=== PATIENT | male | born 1995 | race African-American/Black ===

== ENCOUNTER 2022-07-25 11:36 | Emergency (ER) | payer OTHER, SELFPAY ==
--- NOTE | ~2022-07-25 | XR_ITS ---
EXAMINATION: XR KNEE, RIGHT CLINICAL INFORMATION: Pain after injury COMPARISON: None available. TECHNIQUE: Four views of the right knee. FINDINGS: The joint spaces are normal. No fracture or joint effusion. A few old small ossicles are present along the undersurface of the distal patellar tendon. These could be a manifestation of [place]-Schlatter disease during childhood. Soft tissues are swollen at the proximal patellar tendon. There appears to be mild superior patellar subluxation on the crosstable lateral view. XR/XR knee RT 4V IMPRESSION: There is mild superior patellar subluxation on the crosstable lateral view and soft tissues are swollen in the infrapatellar area. Correlate for any pain in the infrapatellar region. If there is decreased knee extension, then consider MR imaging follow-up to evaluate integrity of the patellar tendon.
[2022-07-25 11:55] VITALS: BP 122/66; PULSE 74; RESP 16; TEMP 36.9; O2SAT 97; BMI 23.7
--- NOTE | 2022-07-25 12:04 | PC.NURSE ---
pt a&ox4, vss, reporting right knee pain post sharp movement during flag football game, difficult weight bearing and bending knee. reports audible pop with 10/10 pain. pt pending XR and ED provider.
--- NOTE | 2022-07-25 12:11 | ED.LOWEXIN ---
HPI - Extremity Injury (Lower) General Chief Complaint: Extremity Injury, Lower Stated Complaint: R knee inj 07/25 Time Seen by Provider: 07/25/22 11:55 Source: patient Mode of arrival: wheelchair Limitations: no limitations History of Present Illness HPI Narrative: 26 yo male presents to the ER for evaluation of a right knee injury sustained today while playing football. he states he was running, making cuts to avoid other players when his right foot got stuck in the ground and he heard a pop. He is unsure if he twisted the knee, denies hyper extending it. He reports after hearing a pop he has been having difficulty walking, bending the leg. He reports the knee is swollen and has significant pain with any attempt at moving it. He has minimal pain at rest. No other injuries. No numbness or tingling. MD complaint: knee injury Onset (ago): hour(s) Injury: Right: knee Type of Injury: unknown Place: street/outdoors Severity: moderate Severity scale (1-10): 6 Relieving factors: immobilization and rest Exacerbating factors: weight bearing, movement and palpation Context: running Associated symptoms: snap/pop sensation, swelling and unable to bear weight Other symptoms: none Related Data Previous Rx's Medication Instructions Recorded hydrocodone 5 mg-acetaminophen 325 1 tab PO Q8H PRN severe pain 07/25/22 mg tablet (scale score 7-10) #8 tabs ibuprofen 600 mg tablet 600 mg PO Q8H PRN pain #14 tabs 07/25/22 Allergies Allergy/AdvReac Type Severity Reaction Status Date / Time No Known Allergies Allergy Verified 07/25/22 11:55 Review of Systems Review of Systems: Yes all other systems are reviewed and are negative [facility] Social History Social History Advance Directives: No Physical Exam Vital Signs: Vital Signs: Last Vital Signs Temp 98.5 F 07/25/22 11:55 Pulse 74 07/25/22 11:55 Resp 16 07/25/22 11:55 BP 122/66 07/25/22 11:55 Pulse Ox 97 07/25/22 11:55 O2 Del Method Room Air 07/25/22 11:55 BMI result Body Mass Index 23.7 Appearance: Alert. Oriented X3. No acute distress. HEENT: normal inspection CVS: Normal heart rate and rhythm. Pulses normal. Respiratory: No respiratory distress. Skin: Skin warm and dry. Normal skin color. Normal skin turgor. No rashes. Extremities: right knee has moderate generalized swelling. The patellar is high-riding with a palpable defect inferiorly. The area is tender. Unable to bend past 10 degrees passively or actively. no tenderness of the medial or lateral joint line. Neuro: Oriented X 3. Grossly normal, nonfocal Unable to test gait due to pain Medications Administered Discontinued Medications Generic Name Dose Route Start Last Admin Trade Name Pooja PRN Reason Stop Dose Admin Hydrocodone Bitart/Acetaminophen 1 tab 07/25/22 12:27 07/25/22 12:33 Hydrocodone Bit/Acetam 5/325 Tablet PO 07/25/22 12:28 1 tab ONCE ONE Administration Ibuprofen 600 mg 07/25/22 12:27 07/25/22 12:33 Ibuprofen 600 Mg Tablet PO 07/25/22 12:28 600 mg ONCE ONE Administration Medical Decision Making Medical Decision Making MDM Narrative: 26-year-old male presents to the ER for evaluation of right knee pain and swelling, limited range of motion in unable to bear weight after he had a non contact injury while playing football today. Initial concern was for ACL tear however given his examination and x-ray findings today, it is more consistent with patellar tendon injury. Palpable defect on exam. Will place in knee immobilizer for comfort, refer to orthopedics. Case was discussed with Mariam Miller from Orthopedics. The office will call him on Wednesday. Results and plan were discussed with the patient. He will be discharged with pain control. He understands the plan. Stable for discharge Differential Diagnosis Differential Diagnoses: The differential diagnosis associated with the presentation includes ACL tear, patellar tendon tear, patellar dislocation, knee sprain Consult Healthcare Provider Management of the patient was discussed with: Rope Coiling Machine Operator Angela JAVIER from Orthopedics Independent Interpretation I performed an independent interpretation of an: Plain X-Ray Interpretation: superior patellar subluxation noted on exam agrees radiologist read Radiology Impression Discussion of test interpretation with radiology: I have reviewed the radiologist's reading. Radiologist Impression: XR/XR knee RT 4V IMPRESSION: There is mild superior patellar subluxation on the crosstable lateral view and soft tissues are swollen in the infrapatellar area. Correlate for any pain in the infrapatellar region. If there is decreased knee extension, then consider MR imaging follow-up to evaluate integrity of the patellar tendon. Independent Historian Clinical information obtained from an independent historian. History obtained from or confirmed by: Parent Prescription Management I considered prescription management with: Pain Medication Critical Care Time Critical Care Time Critical Care Time: No Discharge Plan Discharge Clinical Impression: Tendon rupture, traumatic, patella Patient Disposition: Home, Self-Care Instructions: Patella Tendon Repair (DC), Knee Pain (ED) Additional Instructions: Your exam and imaging today were concerning for patellar tendon injury. where the provided knee immobilizer as needed for pain. Follow-up with orthopedics. They will call you on Wednesday. Ice your knee several times per day and elevate as able. Use crutches. Take the prescribed anti-inflammatory medication as needed for pain and swelling as well as the prescribed narcotic pain medication as needed for severe pain only. XR/XR knee RT 4V IMPRESSION: There is mild superior patellar subluxation on the crosstable lateral view and soft tissues are swollen in the infrapatellar area. Correlate for any pain in the infrapatellar region. If there is decreased knee extension, then consider MR imaging follow-up to evaluate integrity of the patellar tendon. Prescriptions: New ibuprofen 600 mg tablet 600 mg PO Q8H PRN (Reason: pain) Qty: 14 0RF hydrocodone-acetaminophen 5-325 mg tablet 1 tab PO Q8H PRN (Reason: severe pain (scale score 7-10)) Qty: 8 0RF Rx Instructions: Partial Fill upon patient request. Referrals: [facility] [Provider Group] (Exam concerning for patellar tendon tear)
[2022-07-25] MEDS: HYDROcodone Bit/Acetam 5/325 TABLET 1 TAB PO (12:33)
[2022-07-25] MEDS: Ibuprofen 600 MG TABLET PO (12:33)
--- NOTE | 2022-07-25 12:34 | PC.NURSE ---
pt medicated per APR for 10 rt knee pain.
--- NOTE | 2022-07-25 14:16 | PC.NURSE ---
pt verbalizes improvement in pain with medication and immobilization, plan for pt to follow up w ortho on Wednesday. knee immobilizer on right knee, crutches training provided by other nurse.
== END 2022-07-25 14:20 | disposition home or self-care (01) ==
PROVIDERS: Emergency Provider Emergency Medicine; PCP Internal Medicine
DX: S86.811A Strain of other muscle(s) and tendon(s) at lower leg level, right leg, initial encounter (principal); X50.1XXA Overexertion from prolonged static or awkward postures, initial encounter; Y93.61 Activity, american tackle football; Y92.321 Football field as the place of occurrence of the external cause; Y99.9 Unspecified external cause status
CPT/HCPCS: 73564; 99283

== ENCOUNTER 2022-08-07 07:33 | Outpatient (REF) | payer OTHER, SELFPAY | END 2022-08-07 07:34 | disposition home or self-care (01) | LOC: HO.HOSX 07:33 | PROVIDERS: Visit Provider Physician Assistant | DX: S86.811A Strain of other muscle(s) and tendon(s) at lower leg level, right leg, initial encounter (principal) | CPT/HCPCS: 99202 ==

== ENCOUNTER 2022-08-10 12:05 | Outpatient (REF) | payer OTHER, SELFPAY ==
--- NOTE | ~2022-08-10 | MR_ITS ---
EXAMINATION: MR KNEE WITHOUT CONTRAST, RIGHT CLINICAL INFORMATION: Knee pain, status post injury. Preoperative planning. COMPARISON: None available. TECHNIQUE: MRI of the knee without contrast was performed using routine sequences on a high-field scanner. FINDINGS: MENISCI: Medial Meniscus: Intact Lateral Meniscus: Tibial surface tear in the anterior horn. LIGAMENTS: Cruciate: Intact. Collateral: MCL is intact. There is edema associated with the iliotibial band, both superficial and deep to it, which may be reactive to the adjacent tear versus iliotibial band sprain. EXTENSOR MECHANISM: There is marked abnormal signal, ill-definition, irregularity and discontinuity of the proximal patellar tendon, involving a segment approximately 1.9 cm craniocaudal. There may be some possible amorphous ill-defined fibers remaining. Findings have the appearance of high-grade/full-thickness tearing. There is edema in the lateral patellofemoral ligament, and the lateral patellar retinaculum. There is ill-definition and irregularity of the lateral patellar retinaculum, involving a segment approximately 4.2 cm AP, compatible with partial tearing which is more prominent inferiorly. ARTICULAR CARTILAGE/BONE: Patellofemoral Compartment: No focal cartilage loss. Abnormality of the lateral patellofemoral ligament/retinaculum, as detailed above. Edema, likely sprain of the MPFL/medial patellar retinaculum. Medial Compartment: No focal cartilage loss. Lateral Compartment: No focal cartilage loss. JOINT FLUID AND BURSAE: Moderate effusion. No significant Alvares's cyst. There is prominent subcutaneous edema anteriorly with subcutaneous edema to lesser degree posteriorly. MR/MR knee RT wo con IMPRESSION: 1. Abnormal findings in the proximal patellar tendon involving a segment approximately 1.9 cm craniocaudal, having the appearance of a high-grade/full-thickness tear. 2. Strain and partial tearing of the lateral patellofemoral ligament and retinaculum, findings more prominent inferiorly. This involves a length of approximately 4.2 cm AP. 3. Findings suggest sprain of the MPFL/medial patellar retinaculum. 4. Tear of the anterior horn lateral meniscus. 5. Findings suggest iliotibial band sprain. 6 . Moderate effusion. 7. Prominent subcutaneous tenderness edema. 8. Additional findings and details as above.
== END 2022-08-10 12:06 | disposition home or self-care (01) ==
LOC: HO.MRI 12:05
PROVIDERS: PCP Internal Medicine; Visit Provider Orthopaedic Surgery
DX: S86.811A Strain of other muscle(s) and tendon(s) at lower leg level, right leg, initial encounter (principal)
CPT/HCPCS: 73721

== ENCOUNTER 2022-08-11 11:50 | Day surgery (SDC) | payer OTHER, SELFPAY ==
--- NOTE | 2022-08-10 09:03 | HO.ANESPROP2 ---
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 Allergies Allergy/AdvReac Type Severity Reaction Status Date / Time No Known Allergies Allergy Verified 08/07/22 10:37 Exam Exam Date and Time: August 10, 2022902 Assessment and Plan Assessment Anesthesia Assessment: Chart Reviewed Documented by User: Miquel Desai MD 08/11/22 17:10 [facility] Past Medical History Medical History Hx of sinus bradycardia Family History Family history of problems with anesthesia: No Surgical History History of Problems with Anesthesia: No Social History Social History (Updated 08/11/22 @ 17:10 by Miquel Desai MD) Patient Tobacco Use Status: Never used Tobacco Substance Use Type: Marijuana Current occupational status: 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 Allergies Allergy/AdvReac Type Severity Reaction Status Date / Time No Known Allergies Allergy Verified 08/07/22 10:37 Exam Airway Mallampati Class: I TM Dist: >3cm Neck ROM: Full Loose/Missing/Broken Teeth: No Assessment and Plan Assessment Anesthesia Assessment: Anesthesia Plan Discussed Final Anesthetic Review Family History of Problems with Anesthesia: No History of Problems with Anesthesia: No NPO: Yes ASA Class: I Final Preanesthetic Review: No Changes in Pt Med Stat, Meds/Allgs Chart Reviewed, Consent Obtained/Reviewed and Anes Risks/Benef Reviewed Patient Risk: Low Procedure Risk: Low Anesthetic Plan Anesthetic Plan: GA Disposition: Standard PACU
[2022-08-11] VITALS (8 sets, daily range): BP systolic 124–168; BP diastolic 77–104; PULSE 59–84; RESP 12–22; TEMP 36.8–36.9; O2SAT 97–100; BMI 25.5
[2022-08-11] MEDS: Lactated Ringers 1,000 ML 100 ML IVCONT (12:33)
--- NOTE | 2022-08-11 13:52 | PC.NURSE ---
PT REFUSED TO HAVE BRACE OFF
--- NOTE | 2022-08-11 16:00 | PM.OP ---
Brief Operative Note Date of Service: 08/11/22 Pre-op diagnosis: right patellar tendon rupture Post-op diagnosis: same Procedure: Repair right patellar tendon Implants: Matthews and Nephew anchor x 2 Surgeon: Julien Colby MD Anesthesia: GETA and local Was an Certified Medicine Aide used for this Procedure?: Yes Certified Medicine Aide: Gary Purcell Estimated blood loss (mL): 25 Tourniquet time (min): 90 IV fluids (mL): 1,000 Pathology: none sent Condition: stable Disposition: PACU
[2022-08-11] MEDS: HYDROmorphone HCl 0.5 MG/0.5 ML SYRINGE IVPUSH ×2 (16:15→16:20)
[2022-08-11] MEDS: Acetaminophen 1,000 MG/100 ML PIGGYBACK 400 MG IV (16:18)
[2022-08-11] MEDS: oxyCODONE HCl Immed Release 5 MG TABLET PO (16:33)
--- NOTE | 2022-08-20 19:46 | W.PM.OPN ---
Operative Note Operative Note Date of Service: 08/11/22 Narrative: Date of Service: 08/11/22 Pre-op diagnosis: right patellar tendon rupture Post-op diagnosis: same Procedure: Repair right patellar tendon Implants: Matthews and Nephew anchor x 1 Surgeon: Julien Colby MD Anesthesia: GETA and local Was an Small Engine Technician used for this Procedure?: Yes Small Engine Technician: Gary Purcell Estimated blood loss (mL): 25 Tourniquet time (min): 90 IV fluids (mL): 1,000 Pathology: none sent Condition: stable Disposition: PACU Procedure in detail: Patient was brought to the operating room and placed supine on the surgical table. He was prepped and draped in standard sterile fashion and a time out was called to identify proper site, proper procedure and IV antibiotics per weight were administered. I began by making a midline incision over the patella tendon. The patella and tendon were identified. There was a complete avulsion of the patellar tendon. I debrided necrotic tissue from the tendon and debrided the distal patella with a rongeur. I then placed one 4.75 Matthews and Nephew Helacoil into the central portion of the patella. 2 seperate 1.6 mm k wires were drilled through the patella from distal to proximal. I then whip stitched 2 #2 fiberwires through the medial and lateral edges of the patellar tendon in standard locking fashion. The ends were then brought through the k-wire holes. I irrigated copiously and then , with the knee in hyper-extension, tied the fiber wires to each other over the proximal patella. The anchor sutures had previously been ship stitched through the central portion of the tendon. There were then tied. I then used an additional fiber wire to oversew the construct. I then bent the knee to 120 deg without change in repair. I was satisfied with the repair. The wound was then irrigated and closed with absorbable suture and joni. He was placed into sterile dressings and a hinged knee brace locked in extension. He was extubated and brought the the recovery room in stable condition. There were no known complications.
== END 2022-08-11 17:52 | disposition home or self-care (01) ==
PROVIDERS: PCP Internal Medicine; Visit Provider Orthopaedic Surgery
PROC: (CPT 27380; principal; 2022-08-11 14:00)
DX: S86.811A Strain of other muscle(s) and tendon(s) at lower leg level, right leg, initial encounter (principal); M25.561 Pain in right knee; X58.XXXA Exposure to other specified factors, initial encounter; Y93.62 Activity, american flag or touch football; Y92.9 Unspecified place or not applicable; Y99.8 Other external cause status
CPT/HCPCS: 27380; C1713; J0131; J0690; J1100; J1170; J2405; J2550; J2795

== ENCOUNTER 2022-08-17 13:18 | Outpatient (REF) | payer OTHER, SELFPAY ==
--- NOTE | ~2022-08-17 | XR_ITS ---
EXAMINATION: XR KNEE, RIGHT CLINICAL INFORMATION: Pain COMPARISON: 07/25/2022 x-ray. 08/10/2022 MR knee. TECHNIQUE: Single standing crosstable lateral view of the right knee. FINDINGS: Surgical joni present anteriorly. Oblique positioning limits evaluation. Joint effusion with soft tissue swelling. Redemonstration of small ossicle along the distal patellar tendon, possibly representing [place]-Schlatter disease. Redemonstration of mild superior patellar subluxation. XR/XR knee RT 1V IMPRESSION: Redemonstration of mild superior patellar subluxation with associated findings as detailed above.
== END 2022-08-17 13:19 | disposition home or self-care (01) ==
LOC: HO.HOSX 13:18
PROVIDERS: PCP Internal Medicine; Visit Provider Physician Assistant
DX: S86.811D Strain of other muscle(s) and tendon(s) at lower leg level, right leg, subsequent encounter (principal)
CPT/HCPCS: 73560

== ENCOUNTER → 2022-08-24 15:41 | Outpatient (BNVA) | payer OTHER, SELFPAY | PROVIDERS: PCP Internal Medicine; Visit Provider Physician Assistant ==

== ENCOUNTER 2022-09-24 14:57 | Outpatient (AMB) | payer OTHER, SELFPAY ==
[2022-09-24 15:08] VITALS: BMI 23.1
--- NOTE | 2022-09-24 15:08 | MHC.OFFVIS ---
Intake Vital Signs 09/24/22 15:08 Height 6 ft 1 in Weight 175 lb BMI 23.1 Intake Visit Reasons: PO - Right Patella Tendon Repair 08/11/22 Intake Note: Blayne a 26 year old male who presents today for a post operative of right patella tendon repair, 08/11/22. Patient reports he is dong well and only while working with PT on stretching. He has no concerns today. Allergies No Known Allergies Allergy (Verified 09/24/22 15:13) HPI PO - Right Patella Tendon Repair 08/11/22 HPI Details 26-year-old male who returns to the office today for post-op right patella tendon repair, 08/11/22. He states he has pain with working on physical therapy for stretching but is doing well otherwise. He has no other concerns today. 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 He is able to flex the knee to about 80-90 degrees. He has full extension to 0. He does have some difficulty with activation of quad muscles due to atrophy. Calf supple, nontender. NVI. Assessment & Plan Assessment & Plan (1) Traumatic rupture of right patellar tendon: Comment: Right patellar tendon repair 08/11/2022 NE Code(s): S86.811A - Strain of other muscle(s) and tendon(s) at lower leg level, right leg, initial encounter Plan Dr. Colby was available to see the patient with me today. We did express the importance of getting the quad muscle activated and improve function of the quad. He will continue to work on motion but to use caution to not be too aggressive. He can increase 10 degrees every week. He will continue wearing the brace while ambulating. He can unlock to 30 degrees while walking. He will see us back in 6 weeks for a routine follow-up, sooner if needed. Orders: Orders PT Evaluation and Treatment 09/24/22 S86.811A - Strain of other muscle(s) and tendon(s) at lower leg level, right leg, initial encounter Patient Instructions: Scribed for Gary Purcell PA-C, by Miles Aponte medical lab technologist, on 09/24/2022 at 3:30 PM EST. IGary PA-C, have personally reviewed and agree with the information entered by the scribe. Coding Level of Care Code Global (69000) Diagnoses Traumatic rupture of right patellar tendon S86.811A
== END 2022-09-24 15:40 | disposition home or self-care (01) ==
PROVIDERS: PCP Internal Medicine; Visit Provider Physician Assistant
DX: S86.811A Strain of other muscle(s) and tendon(s) at lower leg level, right leg, initial encounter (principal)
CPT/HCPCS: 99024

== ENCOUNTER → 2022-09-24 14:57 | Outpatient (BNVA) | payer OTHER, SELFPAY | PROVIDERS: PCP Internal Medicine; Visit Provider Physician Assistant ==

== ENCOUNTER 2022-11-02 14:57 | Outpatient (AMB) | payer OTHER, SELFPAY ==
--- NOTE | 2022-11-02 15:04 | MHC.OFFVIS ---
Intake Vital Signs 11/02/22 15:06 Height 6 ft 1 in Weight 175 lb BMI 23.1 Intake Visit Reasons: PO - Right Patella Tendon Repair 08/11/22 Intake Note: Blayne a 26 year old male who presents today for a post operative of right patella tendon repair, 08/11/22. Patient reports doing well, no pain or discomfort. He states here a clicking sound when bending his knee. 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
[2022-11-02 15:06] VITALS: BMI 23.1
== END 2022-11-02 15:45 ==
PROVIDERS: PCP Internal Medicine; Visit Provider Orthopaedic Surgery
DX: S86.811A Strain of other muscle(s) and tendon(s) at lower leg level, right leg, initial encounter (principal)
CPT/HCPCS: 99024

== ENCOUNTER → 2022-11-02 14:57 | Outpatient (BNVA) | payer OTHER, SELFPAY | PROVIDERS: PCP Internal Medicine; Visit Provider Orthopaedic Surgery ==

== ENCOUNTER 2022-12-02 12:07 | Outpatient (REF) | payer OTHER, SELFPAY ==
[2022-12-02 14:27] LABS: CT PCR NOT DETECTED (Not Detect.); NG PCR NOT DETECTED (Not Detect.)
[2022-12-03 04:24] LABS: HBS Num1 0.51 mIU/mL (0-7.99); HBc Num1 0.07 S/CO (0.00-0.79); HBsAGNum1 0.39 S/CO (0.00-0.99); HIV AB/AG Nonreactive (Nonreactive); HIV Num 1 0.06 S/CO (0.00-0.99); Hepatitis A Antibody IgM 0.17 Index (0-0.79); Hepatitis B Core Antibody Nonreactive (Nonreactive); Hepatitis B Surface Antigen Negative (Negative); ~Hepatitis A Antibody IgM Nonreactive (Nonreactive); ~Hepatitis B Surface Antibody NONREACTIVE (Nonreactive); ~Hepatitis C Antibody Nonreactive (Nonreactive)
[2022-12-03 21:53] LABS: Herpes Simplex Type 1 IgG <0.90 index; Herpes Simplex Type 2 IgG <0.90 index
== END 2022-12-02 12:08 | disposition home or self-care (01) ==
LOC: HO.LAB 12:07
PROVIDERS: PCP Internal Medicine; Visit Provider Internal Medicine
DX: Z20.2 Contact with and (suspected) exposure to infections with a predominantly sexual mode of transmission (principal)
CPT/HCPCS: 0353U; 86695; 86696; 86704; 86706; 86709; 86803; 87340; 87389

== ENCOUNTER 2022-12-03 13:33 | Outpatient (AMB) | payer OTHER, SELFPAY ==
--- NOTE | 2022-12-03 13:34 | A.OFFVIS_ITS ---
Intake Vital Signs 12/03/22 13:35 Height 6 ft 1 in Weight 175 lb BMI 23.1 Intake Visit Reasons: OV-Right Patella Tendon Repair 08/11/22 Intake Note: Blayne is a 26 year old male who presents today for a post operative of right patella tendon repair, 08/11/22. Patient reports that he is doing well, he has had intermittent episodes of swelling. HE is working with PT, he has 7 sessions left. He is still out of work, will need work note. Allergies No Known Allergies Allergy (Verified 11/02/22 15:04) HPI OV-Right Patella Tendon Repair 08/11/22 HPI Details Blayne is a 26 year old man who presents ~4 months S/P right patellar tendon repair. He says he is doing well overall, with intermittent episodes of swelling which tend to occur with activity. He says this swelling is not painful. He has been attending PT and has a few sessions left. He continues to wear his knee brace with activity, which he finds helpful He has been out of work since his surgery and wants to discuss his work status. 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 Review of Systems Const All systems reviewed & are unremarkable except as noted in HPI and below Physical Exam Vital Signs: BMI result Body Mass Index 23.1 Const General: no acute distress, alert and awake Orientation/consciousness: patient oriented x3 HEENT Head: Yes normocephalic and Yes atraumatic Eyes EOM: EOMs intact bilaterally Resp Effort & Inspection: normal respiratory effort and able to speak in complete sentences Cardio Jugular venous distension: no JVD Skin General skin exam: turgor normal Rashes: no rashes Neuro General: patient oriented x3 Extrem Other: Right Knee: 5-120 degrees ROM Well-healed incision poor quad control Psych Appearance: grossly normal Affect: normal affect Attitude: cooperative Assessment & Plan Assessment & Plan (1) Traumatic rupture of right patellar tendon: Comment: Right patellar tendon repair 08/11/2022 NE Code(s): S86.811A - Strain of other muscle(s) and tendon(s) at lower leg level, right leg, initial encounter Plan: This is a 26 year old man S/P right patellar tendon repair, DOS: 08/11/22. He is doing well overall, with intermittent episodes of swelling, and has been attend ing PT. I recommend he continue with PT and strengthening exercises, including the use of a stationary bicycle and leg press. He is to avoid any running or jumping exercises for the next 3 months at least, and will begin to wean off his knee brace at this time. He was given a note for work with restricitons. He is not ready to interact with kids that may require restraint. He will follow up in 8 weeks. Plan Scribed for Julien Colby MD by Louis Sylvester, medical certification specialist, on 12/03/22 at 1:50 PM, EST. Coding Level of Care Code Est Pt Level 4 (57685) Diagnoses Traumatic rupture of right patellar tendon S86.811A
[2022-12-03 13:35] VITALS: BMI 23.1
== END 2022-12-03 14:01 | disposition home or self-care (01) ==
PROVIDERS: PCP Internal Medicine; Visit Provider Orthopaedic Surgery
DX: S86.811A Strain of other muscle(s) and tendon(s) at lower leg level, right leg, initial encounter (principal)
CPT/HCPCS: 99213

== ENCOUNTER → 2022-12-03 13:33 | Outpatient (BNVA) | payer OTHER, SELFPAY | PROVIDERS: PCP Internal Medicine; Visit Provider Orthopaedic Surgery | DX: S86.811D Strain of other muscle(s) and tendon(s) at lower leg level, right leg, subsequent encounter (principal) | CPT/HCPCS: 99212 ==

== ENCOUNTER 2023-02-04 10:14 | Outpatient (AMB) | payer OTHER, SELFPAY ==
[2023-02-04 10:41] VITALS: BMI 23.1
--- NOTE | 2023-02-04 10:41 | A.OFFVIS_ITS ---
Intake Vital Signs 02/04/23 10:41 Height 6 ft 1 in Weight 175 lb BMI 23.1 Intake Visit Reasons: OV-Right Patella Tendon Repair 08/11/22 Intake Note: Blayne is a 26 year old male who presents today for a post operative of right patella tendon repair, 08/11/22. Patient reports that the leg is feeling better, he continues to have swelling. His swelling is consistent, he is icing but he does not notice relief from swelling with this. Allergies No Known Allergies Allergy (Verified 11/02/22 15:04) HPI OV-Right Patella Tendon Repair 08/11/22 HPI Details Blayne is a 27 year old man who presents ~6 months S/P right patellar tendon repair. He says he is doing well overall, though he continues to have swelling in his knee. He says this swelling is not painful but also does not improve when icing his knee. He has completed his course of PT and continues to work on strengthening exercises at home. 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 Review of Systems Const All systems reviewed & are unremarkable except as noted in HPI and below Physical Exam Vital Signs: BMI result Body Mass Index 23.1 Const General: no acute distress, alert and awake Orientation/consciousness: patient oriented x3 HEENT Head: Yes normocephalic and Yes atraumatic Eyes EOM: EOMs intact bilaterally Resp Effort & Inspection: normal respiratory effort and able to speak in complete sentences Cardio Jugular venous distension: no JVD Skin General skin exam: turgor normal Rashes: no rashes Neuro General: patient oriented x3 Extrem Other: Well healed incision 0-130 compared to 0-135 on left no pain with resisted knee extension Psych Appearance: grossly normal Affect: normal affect Attitude: cooperative Assessment & Plan Assessment & Plan (1) Traumatic rupture of right patellar tendon: Comment: Right patellar tendon repair 08/11/2022 NE Code(s): S86.811A - Strain of other muscle(s) and tendon(s) at lower leg level, right leg, initial encounter Plan: 6 mo post op doing well strengthening of VMO May return to work Plan Scribed for Julien Colby MD by Louis Sylvester, medical coding instructor, on 02/04/23 at 10:50 AM, EST. Coding Level of Care Code Est Pt Level 3 (13587) Diagnoses Traumatic rupture of right patellar tendon S86.811A
== END 2023-02-04 10:58 | disposition home or self-care (01) ==
PROVIDERS: PCP Internal Medicine; Visit Provider Orthopaedic Surgery
DX: S86.811D Strain of other muscle(s) and tendon(s) at lower leg level, right leg, subsequent encounter (principal)
CPT/HCPCS: 99213

== ENCOUNTER → 2023-02-04 10:14 | Outpatient (BNVA) | payer OTHER, SELFPAY | PROVIDERS: PCP Internal Medicine; Visit Provider Orthopaedic Surgery | DX: S86.811D Strain of other muscle(s) and tendon(s) at lower leg level, right leg, subsequent encounter (principal) | CPT/HCPCS: 99212 ==

== ENCOUNTER 2023-02-18 16:00 | Outpatient (RCR) | payer OTHER, SELFPAY ==
--- NOTE | 2022-08-19 17:34 | MHC.PT.EP ---
[facility] [place] [facility] [place] [facility] [place] Office [address] Dee Dee Alanis [address] [phone] F: [phone] F: [phone] F: [phone] F: [phone] Physical Therapy Plan of Care Date of Evaluation: Date of Surgery: 08/11/2022 Diagnosis: s/p RIGHT patellar tendon repair (DOS: 08/11/2022) Assessment: Patient is a pleasant, active 26 y.o. male who is referred to PT by Dr. Julien Colby MD, with Dx of s/p RIGHT patellar tendon repair. Patient impairments include pain, swelling, limited ROM, weakness, impaired gait and mobility. Patient current functional limitations are difficulty with gait, stair use, WBing/standing, bending/squatting. Patient will benefit from skilled PT to address aforementioned impairments and functional limitations to meet established goals. Frequency and Duration: The patient will be seen 2-3x/week for 12 weeks Short Term Goals: 6 weeks Patient is able to elicit strong quad contraction to perform SLR without quad lag. Patient presents with increased knee flexion to 105 degrees per protocol to improve mobility. Half-Way Goals: 12 weeks Patient presents with increased knee flexion to 125 degrees to be able to perform sit to stand low chair. Patient presents with increased quad strength 4/5 to perform reciprocal stairs 1 flight for home. Treatment Plan: Modalities to reduce pain, spasms and effusion. Manual therapy to restore motion and function. Therapeutic exercise to improve strength and flexibility. Neuromuscular re-education for posture and balance. Therapeutic activities to return to functional activities of daily living. Electronically signed by: Percy Nixon, PT, DPT Please sign and return to therapist. Thank you for your referral.
--- NOTE | 2023-03-08 10:37 | MHC.PT.DC ---
[facility] [place] [facility] [place] [facility] [place] [facility] [address] Dee Dee Alanis [address] [phone] F: [phone] F: [phone] F: [phone] F: [phone] Physical Therapy Discharge Report Diagnosis: s/p RIGHT patellar tendon repair (DOS: 08/11/2022)9 Date of Surgery: 08/11/2022 Date of Evaluation: 08/19/22 Date of Discharge: 02/18/23 Treatments to Date: 49 Cancellations to Date: 0 No Shows to Date: 0 Discharge Status: Achieved Goals Improved Function Independent with HEP Discharge Summary: Per last PT note for discharge on 02/18/23: -AROM 0-135* -STRENGTH 5/5 KNEE FLEX/EXT and 5/5 hip abd/add/flex Pt has met all goals and is now joining a gym for strengthening and will progress running program in the future when cleared by MD Electronically signed by: Percy Nixon, PT, DPT Please sign and return to therapist. Thank you for your referral.
== END 2023-03-08 10:37 | disposition home or self-care (01) ==
LOC: HO.PT 16:00
PROVIDERS: PCP Internal Medicine; Visit Provider Orthopaedic Surgery
DX: S86.811D Strain of other muscle(s) and tendon(s) at lower leg level, right leg, subsequent encounter (principal)
CPT/HCPCS: 97110; 97112; 97116; 97140; 97161; 97530; 97535

== ENCOUNTER 2023-08-05 14:51 | Outpatient (AMB) | payer OTHER, SELFPAY ==
--- NOTE | 2023-08-05 14:52 | MHC.OFFVIS ---
Intake Visit Reasons: OV-Right Patella Tendon Repair 08/11/22 Intake Note: Blayne is a 26 year old male who presents today for a post operative of right patella tendon repair, 08/11/22. Patient reports that he is doing well has some increase pain with jumping & squatting. Some mild increased swelling Allergies No Known Allergies Allergy (Verified 08/05/23 14:53) HPI HPI OV-Right Patella Tendon Repair 08/11/22: Details: 12 months s/p right patellar tendon repair. He has full ROM and has returned to almost all activities except football. He has been playing basketball and does feel some mild swelling the day following intense activity. 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 May continue to engage in activity as tolerated. f/u as needed. Coding Level of Care Code Est Pt Level 3 (05638) Diagnoses Traumatic rupture of right patellar tendon S86.811A
== END 2023-08-05 16:15 | disposition home or self-care (01) ==
PROVIDERS: PCP Internal Medicine; Visit Provider Orthopaedic Surgery
DX: S86.811A Strain of other muscle(s) and tendon(s) at lower leg level, right leg, initial encounter (principal)
CPT/HCPCS: 99212

== ENCOUNTER → 2023-08-05 14:51 | Outpatient (BNVA) | payer OTHER, SELFPAY | PROVIDERS: PCP Internal Medicine; Visit Provider Orthopaedic Surgery | DX: S86.811D Strain of other muscle(s) and tendon(s) at lower leg level, right leg, subsequent encounter (principal) | CPT/HCPCS: 99212 ==

== ENCOUNTER 2023-08-17 10:13 | Outpatient (AMB) | payer OTHER, SELFPAY ==
[2023-08-17 10:16] VITALS: BP 120/74; PULSE 58; TEMP 36.7; O2SAT 98; BMI 24.7
--- NOTE | 2023-08-17 10:16 | MHC.OFFWIV ---
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 He has results on phone of HIV, HCV, RPR (syphilis), CT/NG all negative. He was then seen again by PCP about 5 days ago for same complaint, lack of resolution of inguinal swelling, and was told, per patient not to worry about it. Pt PCP Dr. Vail, no records available. Presenting today for same: continued swelling of inguinal region. Lesion on penis is resolving. Sexual partner, female, of approx. 1 year. Has had no other partners for at least several months. Partner recently treated for strep. Pt denies any fevers, myalgias, body aches, penile discharge, dysuria, recent heavy lifting or strain. He denies any recent travel, rash, tick bites but reports [place]. 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 Review of Systems Const Reports as per HPI, Denies fatigue, Denies fever(s), Denies headache(s), Denies lethargy and Denies malaise Eyes Denies loss of vision ENT Denies headache(s) Skin/Breast Reports lesions and Denies rash Neuro Denies burning sensations, Denies headache(s) and Denies loss of vision Endo Denies fatigue Almas/Lymph Reports lymphadenopathy Physical Exam Vital Signs: Last Vital Signs Temp 98.0 F 08/17/23 10:16 Pulse 58 08/17/23 10:16 BP 120/74 08/17/23 10:16 Pulse Ox 98 08/17/23 10:16 BMI result Body Mass Index 24.7 Const General: no acute distress Nutritional Appearance: average body habitus Neck Neck: Yes full ROM and Yes no lymphadenopathy Resp Effort & Inspection: normal respiratory effort Male General Exam: Yes inguinal lymphadenopathy (more significant on right, non-tender) bilateral and Yes Genital lesions present (healing lesion of approx 0.5mm on ventral shaft of penis) Penis: Genital lesions present (healing lesion of approx 0.5mm on ventral shaft of penis) Meatus: meatus normal Scrotum: scrotum normal and testes descended bilaterally Results AMB Urinalysis, Automated UA Leukoctes 0 Elvie/uL Last Edit by Lukasz Scott CCM on 08/17/23 10:57 UA Nitrite Negative Last Edit by Lukasz Scott [facility] on 08/17/23 10:57 UA Urobilinogen 0.2 mg/dL Last Edit by Lukasz Scott [facility] on 08/17/23 10:57 UA Protein 15 mg/dL Last Edit by Lukasz Scott [facility] on 08/17/23 10:57 UA pH 7.0 Last Edit by Lukasz Scott [facility] on 08/17/23 10:57 UA Blood 0 Richy/uL Last Edit by Lukasz Scott [facility] on 08/17/23 10:57 UA Specific [place] 1.015 Last Edit by Lukasz Scott CCM on 08/17/23 10:57 UA Ketone Negative Last Edit by Lukasz Scott [facility] on 08/17/23 10:57 UA Bilirubin 0 mg/dL Last Edit by Lukasz Scott [facility] on 08/17/23 10:57 UA Glucose 0 mg/dL Last Edit by Lukasz Scott [facility] on 08/17/23 10:57 Results Reviewed Results Reviewed: Laboratory Last Values Urine pH (Auto) 7.0 08/17/23 10:56 Specific [place] (Auto) 1.015 08/17/23 10:56 Urine Protein (Auto) 15 mg/dL 08/17/23 10:56 Glucose (UA)(Auto) 0 mg/dL 08/17/23 10:56 Urine Ketones (Auto) Negative 08/17/23 10:56 Urine Blood (Auto) 0 Richy/uL 08/17/23 10:56 Urine Nitrite (Auto) Negative 08/17/23 10:56 Urine Bilirubin (Auto) 0 mg/dL 08/17/23 10:56 Urine Urobilinogen (Auto) 0.2 mg/dL 08/17/23 10:56 Leukocyte Esterase (Auto) 0 Elvie/uL 08/17/23 10:56 Assessment & Plan Assessment & Plan (1) Genital lesion, male: Code(s): N50.89 - Other specified disorders of the male genital organs Plan: Pt with small lesion on penis and LAD; RPR at initial presentation negative but this can remain negative through initial onset of syphilis. DDx does also include Lyme. Pt engaged in shared decision making, I have obtained an HSV swab, UA today unremarkable. I will treat for syphilis with 2 weeks of doxycycline which would also cover for Lyme. Pt educated in R/B/C of doxycycline, encouraged to f/u with PCP for RPR/syphilis titer and Lyme IGG testing once treatment is completed. (2) Inguinal lymphadenopathy: Code(s): R59.0 - Localized enlarged lymph nodes Plan: see above Orders: Orders AMB Urinalysis Automated Today Z13.9 - Encounter for screening, unspecified Herpes Virus Culture Today N50.89 - Other specified disorders of the male genital organs Medications: New doxycycline hyclate 100 mg PO BID 14 days 28 caps 0RF Coding Level of Care Code New Pt Level 3 (89829) Diagnoses Genital lesion, male N50.89 Inguinal lymphadenopathy R59.0
== END 2023-08-17 11:35 | disposition home or self-care (01) ==
PROVIDERS: PCP Internal Medicine; Visit Provider Emergency Medicine
DX: N50.89 Other specified disorders of the male genital organs (principal); R59.0 Localized enlarged lymph nodes
CPT/HCPCS: 81003; 99203

== ENCOUNTER 2023-08-17 11:12 | Outpatient (REF) | payer OTHER, SELFPAY | END 2023-08-17 11:13 | disposition home or self-care (01) | LOC: HO.LAB 11:12 | PROVIDERS: Visit Provider Emergency Medicine | DX: N50.89 Other specified disorders of the male genital organs (principal) | CPT/HCPCS: 87255 ==

== ENCOUNTER 2023-12-13 15:22 | Outpatient (AMB) | payer OTHER, SELFPAY ==
--- NOTE | 2023-12-13 15:25 | AM.OFFWIN_ITS ---
Intake Vital Signs 12/13/23 15:26 Height 6 ft 1 in Weight 176 lb BMI 23.2 BP 126/72 Blood Pressure Location Rt brachial Position Sitting Pulse 78 Pulse Source Pulse Oximeter Pulse Oximetry (%) 98 Oxygen Delivery Method Room Air Intake Visit Reasons: EP swelling in groin area Intake Note: Patient here for swelling in groin area which has been present for a few days. He states this has happened in the past. Patient Tobacco Use Status: Never used Tobacco Allergies No Known Allergies Allergy (Verified 12/13/23 15:28) Do you need a note to return to daycare/school/sports/work: Yes HPI EP swelling in groin area HPI Details This note is constructed using voice recognition software. While every effort has been made to ensure accuracy, pressroom worker errors may have been included. The patient is a 27 year old male who presents to the clinic today with complaints of swelling in the groin area bilaterally. He notes that over the summer he had a similar event, was seen by his primary care followed by urgent care as the symptoms did not seem to resolve. At that time he also had lesions on his penis, that were swabbed or HSV which were negative. He had STD workup, which was all negative. He was treated with doxycycline in the event that he may have syphilis, or Lyme disease, which turned out to both be negative on testing back with his primary care provider. He reports since that time, the swelling in his groin became last, however he admits that he does not know if it completely went away. Several days ago, he had a similar recurrence of swelling. He has what he calls a scratch to the penis, without any discharge. There is no pain, though the swelling area is tender per patient. He has no pain as discharge. He is sexually active, however with the same partner for greater than 1 year. He denies fever, chills, body aches. He denies change in function of his bladder or bowel. 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 Review of Systems Const All systems reviewed & are unremarkable except as noted in HPI and below Physical Exam Vital Signs: Last Vital Signs Pulse 78 12/13/23 15:26 BP 126/72 12/13/23 15:26 Pulse Ox 98 12/13/23 15:26 Oxygen Delivery Method Room Air 12/13/23 15:26 BMI result Body Mass Index 23.2 Const General: cooperative, healthy appearing, comfortable, no acute distress and well developed Orientation/consciousness: patient oriented x3 Limitations: no limitations Resp Effort & Inspection: normal respiratory effort and able to speak in complete sentences Cardio Rate: regular rate Rhythm: regular rhythm Heart sounds: normal S1 and S2 GI Inspection: Yes normal to inspection Palpation (GI): Soft to palpation and nontender Other: Pipeline Controller offered for exam, declined by patient. Male General Exam: No ecchymosis, No edema, No erythema and Yes inguinal lymphadenopathy (2 cm, nonmobile, nontender, firm) bilateral Penis: circumcised and other (Linear abrasion present) Scrotum: scrotum normal (Normal cremasteric reflex), no masses and no scrotal swelling Testes: Testes normal Neuro General: patient oriented x3 Extrem General: Yes normal to inspection Assessment & Plan Assessment & Plan (1) Inguinal lymphadenopathy: Code(s): R59.0 - Localized enlarged lymph nodes Plan: Previous walk-in note reviewed. Previous lab results reviewed. Discussed consideration of repeat labs to test for STI, however based on the fact that there have been no change in circumstances, it is unlikely that we will have any difference in testing. Etiology unclear with ongoing and return of symptoms for the past several months. Advised patient to follow up with his primary care provider, due to size, lack of mobility, lack of tenderness, and firm nature of the lymphadenopathy. He likely will require an ultrasound for further evaluation. Given his slight improvement previously, we did elect to prescribed doxycycline again as this may help treat infection. (2) Genital lesion, male: Code(s): N50.89 - Other specified disorders of the male genital organs Plan: Previously negative for HSV, now with what appears to be abrasions. Advised keeping the area clean and dry. Advised monitoring for signs of secondary bacterial infection, which are not present at this time. Advised follow up with PCP for inguinal lymphadenopathy. Plan See above for full details and plan. Medications: Refilled doxycycline hyclate 100 mg PO BID 14 days 28 caps 0RF Coding Level of Care Code Est Pt Level 4 (14167) Diagnoses Inguinal lymphadenopathy R59.0 Genital lesion, male N50.89
[2023-12-13 15:26] VITALS: BP 126/72; PULSE 78; O2SAT 98; BMI 23.2
== END 2023-12-13 16:08 | disposition home or self-care (01) ==
PROVIDERS: PCP Internal Medicine; Visit Provider Registered Nurse
DX: R59.0 Localized enlarged lymph nodes (principal); N50.89 Other specified disorders of the male genital organs

== ENCOUNTER → 2023-12-13 15:22 | Outpatient (BNVA) | payer OTHER, SELFPAY | PROVIDERS: PCP Internal Medicine; Visit Provider Registered Nurse | DX: R59.0 Localized enlarged lymph nodes (principal); N50.89 Other specified disorders of the male genital organs | CPT/HCPCS: 99212 ==

== ENCOUNTER 2024-01-18 14:37 | Outpatient (REF) | payer OTHER, SELFPAY ==
[2024-01-18 16:22] LABS: MANUAL DIFF FLAG NO
[2024-01-18 16:38] LABS: Eosinophils Absolute Auto 0.2 X10*3/uL (0.0-0.4); Eosinophils Percent Auto 5.5 % (0-4); Hematocrit 44.3 % (42.0-52.0); Hemoglobin 15.2 g/dl (14.0-18.0); Imm Gran Abs Auto 0.01 X10*3/uL (0.00-0.03); Imm Gran Pct Auto 0.3 % (0.0-0.4); Lymphocytes Absolute Auto 1.8 X10*3/uL (1.2-4.9); Lymphocytes Percent Auto 44.5 % (20-40); Mean Corpuscular HGB Conc 34.3 g/dl (31.0-36.0); Mean Corpuscular Volume 87.5 fL (80.0-98.0); Mean Platelet Volume 11.8 fL (9.4-12.4); Monocytes Absolute Auto 0.3 X10*3/uL (0.1-1.2); Monocytes Percent Auto 6.8 % (2-11); Neutrophils Absolute Auto 1.7 x10*3/uL (2.0-8.3); Neutrophils Percent Auto 41.9 % (45-73); Platelet Count 198 X10*3/uL (160-400); Red Blood Count 5.06 X10*6/uL (4.60-5.80); Red Cell Distribution Width 13.2 % (11.0-16.0)
[2024-01-19 03:31] LABS: CT PCR NOT DETECTED (Not Detect.); NG PCR NOT DETECTED (Not Detect.)
[2024-01-19 08:35] LABS: Syphilis Screen Nonreactive (Nonreactive)
[2024-01-20 06:23] LABS: Lyme Abs Screen <0.90 index
== END 2024-01-18 14:38 | disposition home or self-care (01) ==
LOC: HO.HMGCLDS 14:37
PROVIDERS: PCP Internal Medicine; Visit Provider Internal Medicine
DX: R53.83 Other fatigue (principal); Z20.2 Contact with and (suspected) exposure to infections with a predominantly sexual mode of transmission
CPT/HCPCS: 36415; 85025; 86617; 86618; 86780; 87491; 87591

== ENCOUNTER 2024-01-27 15:33 | Outpatient (REF) | payer OTHER, SELFPAY | END 2024-01-27 15:34 | disposition home or self-care (01) | LOC: HO.HMGCX 15:33 | PROVIDERS: PCP Internal Medicine; Visit Provider Internal Medicine | DX: R19.09 Other intra-abdominal and pelvic swelling, mass and lump (principal) | CPT/HCPCS: 76857 ==

== ENCOUNTER → 2024-01-27 15:34 | Outpatient (BNV) | payer OTHER, SELFPAY | PROVIDERS: PCP Internal Medicine; Visit Provider Radiology Diagnostic Radiology | DX: R19.09 Other intra-abdominal and pelvic swelling, mass and lump (principal) | CPT/HCPCS: 76857 ==

== ENCOUNTER 2024-06-09 15:02 | Outpatient (AMB) | payer OTHER, SELFPAY ==
--- OUTSIDE RECORDS SUMMARY | 2024-06-09 15:09 | XMS_ITS | Clinical Summary ---
Author Organization [facility] Address [address] [place] [address] Care Team Providers Care Shower Screen Installer Name Role Phone Unavailable Primary Care Provider Unavailabl e Social History Tobacco Use Types Packs/Day Years Used Date Smoking Tobacco: Never Assessed Sex and Gender Information Value Date Recorded Sex Assigned at Not on file Legal Sex Male 5:59 PM EST Gender Identity Not on file Sexual Orientation Not on file Plan of Treatment Health Maintenance Due Date Last Done Comments DTaP,Tdap,and Td Vaccines (1 - Tdap) 12/28/2015 Hepatitis B Vaccines (1 of 3 - 19+ 3-dose series) 12/28/2015 COVID-19 Vaccine ( - 2023-2 5 season) 2023 Influenza Vaccine (Season Ended) 2024 HIB Vaccines Aged Out No longer eligi ble based on patient's age to complete this topic HPV Vaccines Aged Out No longer eligi ble based on patient's age to complete this topic Hepatitis A Vaccines Aged Out No long er eligible based on patient's age to complete this topic IPV Vaccines Aged Out No longer eligi ble based on patient's age to complete this topic MMR Vaccines Aged Out No longer eligi ble based on patient's age to complete this topic Meningococcal ACWY Vaccine Aged Out N o longer eligible based on patient's age to complete this topic Meningococcal B Vaccine Aged Out No l onger eligible based on patient's age to complete this topic Pneumococcal Vaccine: Pediat rics (0 to 5 Years) and At-Risk Patients (6 to 64 Years) Aged Out No longer eligible b ased on patient's age to complete this topic RSV Immunization Patients Un isi 20 months Aged Out No longer eligible b ased on patient's age to complete this topic Varicella Vaccines Aged Out No longer eligible based on patient's age to complete this topic
--- NOTE | 2024-06-09 15:30 | MHC.OFFVIS ---
Intake Visit Reasons: Groin lymph node inflammation Intake Note: New patient presents today for initial visit for groin lymph node inflammation Urology Medication:none Blood Thinner:none Antibiotic Allergies:none Allergies No Known Allergies Allergy (Verified 07/06/24 11:11) HPI Comments Details: 06/09/24--The patient is a 28-year-old male presenting with swelling in the groin area. Earlier in 2023, he experienced episodes of swelling in the inguinal region, which temporarily resolved but later reappeared. He consulted his primary care doctor and underwent STD testing, which returned negative. An urgent care visit in January included an ultrasound that revealed lymphadenopathy. The recent decrease in swelling has been noted, with no accompanying pain or other urinary complaints. The patient has expressed concern over the possible causes of the lymphadenopathy. Results - January ultrasound showing inguinal lymphadenopathy - Negative sexually transmitted disease tests Discussion Notes During the consultation, we discussed the patient's current state of inguinal lymphadenopathy. I recommended a CAT scan to reevaluate the lymph nodes for any changes, discussed possible need for a biopsy, should the lymph nodes remain prominent, emphasizing the potential for an inflammatory type response from the body initially. He denies familial cancer history. [facility] Medical History (Updated 07/06/24 @ 18:20 by Essence Vega PA-C) Penile lump Hx of sinus bradycardia Family History Father No problems noted. Mother No problems noted. 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 Cognitive needs: No Hearing needs: No Vision needs: Yes (rx contacts) Review of Systems Const All systems reviewed & are unremarkable except as noted in HPI and below Reports no additional complaints Eyes Reports no additional complaints ENT Reports no additional complaints Card Reports no additional complaints Resp Reports no additional complaints GI Reports no additional complaints Reports as per HPI Musc Reports no additional complaints Skin/Breast Reports system reviewed and no additional complaints, except as documented Neuro Reports no additional complaints Psych Reports no additional complaints Endo Reports no additional complaints Almas/Lymph Reports no additional complaints Aller/Immun Reports no additional complaints Physical Exam Const General: healthy appearing, no acute distress and well developed Orientation/consciousness: patient oriented x3 HEENT Head: Yes normocephalic and Yes atraumatic Eyes Conjunctivae: conjunctivae normal Neck Neck: Yes normal visual inspection Chest Chest palpation & inspection: normal inspection of the chest Resp Effort & Inspection: normal respiratory effort Cardio Rate: regular rate GI Inspection: Yes normal to inspection Neuro General: patient oriented x3 Psych Appearance: grossly normal Affect: normal affect Assessment & Plan Assessment & Plan (1) Pelvic lymphadenopathy: Code(s): R59.0 - Localized enlarged lymph nodes Category: Medical (2) Lymphadenopathy: Code(s): R59.1 - Generalized enlarged lymph nodes Category: Medical Plan Plan The patient's management includes obtaining a CAT scan to reassess the lymphadenopathy seen on the previous ultrasound. The CAT scan will utilize IV contrast Orders: Orders Blood Urea Nitrogen 06/14/24 R59.1 - Generalized enlarged lymph nodes, R59.0 - Localized enlarged lymph nodes CT pelvis wo/w IV con 06/09/24 R59.0 - Localized enlarged lymph nodes, R59.1 - Generalized enlarged lymph nodes Creatinine 06/14/24 R59.0 - Localized enlarged lymph nodes, R59.1 - Generalized enlarged lymph nodes Patient Instructions: The patient had an opportunity to ask questions regarding treatment plan. The patient expressed understanding and agreement with the above treatment plan. The patient is aware they should contact our office by phone for worsening of their current condition or the appearance of new symptoms. Compliance is encouraged with any medications and followup testing that is ordered. It is a privilege to be allowed the opportunity to participate in the urologic care of your patient. If you have any questions or concerns regarding treatment for the above conditions please do not hesitate to contact me. The office telephone contact is [phone]. This note is constructed in part using voice recognition software. While every effort has been made to ensure accuracy business unit controller errors may have been included. Yours sincerely, Huyen Alfaro MD Scribe Plan - Not visible on output: Patient was informed and verbally consented to the use of an ambient scribe for clinic note documentation during this visit. Coding Level of Care Code New Pt Level 3 (97758) Diagnoses Pelvic lymphadenopathy R59.0 Lymphadenopathy R59.1
== END 2024-06-09 16:02 | disposition home or self-care (01) ==
LOC: HO.HUSH 15:03
PROVIDERS: PCP Internal Medicine; Visit Provider Urology
DX: R59.0 Localized enlarged lymph nodes (principal); R59.1 Generalized enlarged lymph nodes
CPT/HCPCS: 99203

== ENCOUNTER → 2024-06-09 15:02 | Outpatient (BNVA) | payer OTHER, SELFPAY | PROVIDERS: PCP Internal Medicine; Visit Provider Urology ==

== ENCOUNTER 2024-06-14 09:36 | Outpatient (REF) | payer OTHER, SELFPAY ==
--- OUTSIDE RECORDS SUMMARY | 2024-06-14 11:26 | XMS_ITS | Clinical Summary ---
Author Organization [facility] Address [address] [place] [address] Care Team Providers Care Soil Specialist Name Role Phone Unavailable Primary Care Provider [...]
[2024-06-14 13:54] LABS: Blood Urea Nitrogen 12 mg/dL (9-16); Estimated Glomerular Filt Rate > 60
[2024-06-14 15:57] LABS: CT PCR NOT DETECTED (Not Detect.); NG PCR NOT DETECTED (Not Detect.)
[2024-06-15 04:14] LABS: HIV AB/AG Nonreactive (Nonreactive); HIV Num 1 0.08 S/CO (0.00-0.99)
[2024-06-15 10:53] LABS: Herpes Simplex Type 1 IgG <0.90 index; Herpes Simplex Type 2 IgG 2.79 index
[2024-06-15 11:39] LABS: RPR Rapid Plasma Reagin NON-REACTIVE (NON-REACTIVE)
== END 2024-06-14 09:37 | disposition home or self-care (01) ==
LOC: HO.HMGCLDS 09:36
PROVIDERS: Urology; PCP Internal Medicine; Visit Provider Physician Assistant
DX: R59.1 Generalized enlarged lymph nodes (principal); R59.0 Localized enlarged lymph nodes; Z20.2 Contact with and (suspected) exposure to infections with a predominantly sexual mode of transmission
CPT/HCPCS: 36415; 82565; 84520; 86592; 86695; 86696; 87389; 87491; 87591

== ENCOUNTER 2024-06-14 09:36 | Outpatient (AMB) | payer OTHER, SELFPAY ==
--- NOTE | 2024-06-14 09:44 | MHC.OFFWIV ---
Intake Vital Signs 06/14/24 09:46 Weight 174 lb BP 122/80 Blood Pressure Location Rt brachial Position Sitting Pulse 68 Pulse Source Pulse Oximeter Pulse Oximetry (%) 100 Oxygen Delivery Method Room Air Intake Visit Reasons: EP STI testing Intake Note: Patient here for STI check as he has a new partner. Patient Tobacco Use Status: Never used Tobacco Allergies No Known Allergies Allergy (Verified 06/14/24 09:49) Do you need a note to return to daycare/school/sports/work: No HPI HPI Comments History of Present Illness Details Patient is a 28yo M who presents for STD screening + new partner and unsure about exposure to STDs He noticed a few bumps on his shaft this week so he wanted to get checked States this has happened before and it resolved on its own; last time it occured he was STD tested and negative Denies pain to lesions, 0/10 No itching, discharge or redness Denies current testicular pain, dysuria, frequency or urgency No abdominal pain 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 Review of Systems Const Denies chills and Denies fever(s) GI Denies abdominal pain Denies difficulty urinating, Reports genital lesions, Denies genital pain, Denies dysuria, Denies penile discharge, Denies scrotal swelling, Denies testicular mass, Denies urinary frequency, Denies urinary hesitancy and Denies urinary urgency Musc Denies back pain Skin/Breast Reports new lesions, Denies erythema and Denies rash Physical Exam Vital Signs: Last Vital Signs Pulse 68 06/14/24 09:46 BP 122/80 06/14/24 09:46 Pulse Ox 100 06/14/24 09:46 Oxygen Delivery Method Room Air 06/14/24 09:46 General: Non-toxic, NAD. Speaking full sentences. Skin: Warm dry throughout Eye: EOMI Respiratory: CTA bilaterally. No wheezes, rales or rhonchi Cardiac: RRR. No murmur Abdominal: BS present x 4. No tenderness to light and deep palpation abdomen. No rebound or guarding : Pt agreed to examination. He had 4 small skin colored papules to base of shaft. No skin discoloration, lesions or jamila anoted to headof penis. No vesicular lesions MSK: Full ROM extremities. Neurology: Alert. No aphasia or facial droop. Gait without abnormality Psych: Good mood and affect Assessment & Plan Assessment & Plan (1) Possible exposure to STD: Code(s): Z20.2 - Contact with and (suspected) exposure to infections with a predominantly sexual mode of transmission Plan: Patient seen and evaluated. No concern for herpes on exam Will send urine GC and chalmydia, serum HIV HSV and syphilis labs per pt request Discussed no concern for penile papules and to monitor for change in appearance, drainage or pain and call with concerns Patient gave verbal understanding and had no additional questions or concerns at time of discharge All questions answered Orders: Orders HIV Ab/Ag Today Z20.2 - Contact with and (suspected) exposure to infections with a predominantly sexual mode of transmission Herpes Simplex Virus Ab IgG Today Z20.2 - Contact with and (suspected) exposure to infections with a predominantly sexual mode of transmission CT NG by PCR Today Z20.2 - Contact with and (suspected) exposure to infections with a predominantly sexual mode of transmission RPR Monitor reflex titer Today Z20.2 - Contact with and (suspected) exposure to infections with a predominantly sexual mode of transmission Coding Level of Care Code Est Pt Level 3 (38025) Diagnoses Possible exposure to STD Z20.2
[2024-06-14 09:46] VITALS: BP 122/80; PULSE 68; O2SAT 100
--- OUTSIDE RECORDS SUMMARY | 2024-06-14 10:48 | XMS_ITS | Clinical Summary ---
Author Organization [facility] Address [address] [place] [address] Care Team Providers Care Photoengraving Etcher Name Role Phone Unavailable Primary Care Provider [...]
== END 2024-06-14 10:22 | disposition home or self-care (01) ==
PROVIDERS: PCP Internal Medicine; Visit Provider Physician Assistant
DX: Z20.2 Contact with and (suspected) exposure to infections with a predominantly sexual mode of transmission (principal)

== ENCOUNTER 2024-06-16 14:12 | Outpatient (AMB) | payer OTHER, SELFPAY ==
[2024-06-16 14:25] VITALS: BMI 24.0
--- NOTE | 2024-06-16 14:25 | MHC.OFFWIV ---
Intake Vital Signs 06/16/24 14:25 Height 6 ft 1 in Weight 182 lb BMI 24.0 Intake Visit Reasons: EP-std testing Intake Note: Patient here for S Patient Tobacco Use Status: Never used Tobacco Allergies No Known Allergies Allergy (Verified 06/14/24 09:49) HPI HPI Comments History of Present Illness Details History of Present Illness - The patient is a 28-year-old male presenting with genital lesions potentially related to Herpes Simplex Virus. - Past medical history includes HSV 2 IgG positivity, indicating previous exposure without active infection. - Patient has experienced similar episodes of genital lesions in the past, previously tested negative for HSV IgM - The current episode began with prodromal tingling sensation in the scrotum area a day prior to recognition of lesions. - The patient is cognizant of the dormant nature of HSV and associated contagion risks with vesicles. - Declined cash management associate for exam Physical Exam General: Cooperative, healthy appearing, comfortable, no acute distress and well developed Orientation: Patient oriented x3 Limitations: No limitations Head: Normal to inspection Ears: Hearing grossly normal bilaterally Nose: Normal External nose present Face and sinus: Normal facial exam Eyes: Appearance normal, both eyes and all related structures Neck: Normal visual inspection and Yes full ROM Respiratory: Normal respiratory effort and able to speak in complete sentences. 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 His past positive HSV Type 2 IgG diagnosis was considered, and a HSV culture swab was taken to confirm infection. Antiviral medication was advised to begin promptly within the first three days from noticing lesions to expedite healing, pending positive test confirmation. He was counseled on sexual abstinence during active outbreaks, the limited protection condoms offer due to potential viral shedding, and the importance of informing partners to prevent transmission. Treatment consent was confirmed, and he was informed that test results would be communicated once available. Patient was informed and verbally consented to the use of an ambient scribe for clinic note documentation during this visit. Medications: New valacyclovir 1,000 mg PO DAILY 5 days 5 tabs 0RF Coding Level of Care Code Est Pt Level 3 (46330) Diagnoses HSV-2 (herpes simplex virus 2) infection B00.9
--- OUTSIDE RECORDS SUMMARY | 2024-06-16 14:53 | XMS_ITS | Clinical Summary ---
Author Organization [facility] Address [address] [place] [address] Care Team Providers Care Solar Pv Installer Name Role Phone Unavailable Primary Care [...]
== END 2024-06-16 14:52 | disposition home or self-care (01) ==
PROVIDERS: PCP Internal Medicine; Visit Provider Physician Assistant
DX: B00.9 Herpesviral infection, unspecified (principal)

== ENCOUNTER → 2024-06-16 14:12 | Outpatient (BNVA) | payer OTHER, SELFPAY | PROVIDERS: PCP Internal Medicine; Visit Provider Physician Assistant ==

== ENCOUNTER 2024-06-16 16:40 | Outpatient (REF) | payer OTHER, SELFPAY | END 2024-06-16 16:41 | disposition home or self-care (01) | LOC: HO.LNP 16:40 | PROVIDERS: Visit Provider Family Medicine | DX: Z20.2 Contact with and (suspected) exposure to infections with a predominantly sexual mode of transmission (principal) | CPT/HCPCS: 87255 ==

== ENCOUNTER 2024-06-17 11:22 | Outpatient (REF) | payer OTHER, SELFPAY ==
--- OUTSIDE RECORDS SUMMARY | 2024-06-17 11:25 | XMS_ITS | Clinical Summary ---
Author Organization [facility] Address [address] [place] [address] Care Team Providers Care Textile Knitter Name Role Phone Unavailable Primary Care Provider [...]
== END 2024-06-17 11:23 | disposition home or self-care (01) ==
LOC: HO.LAB 11:22
PROVIDERS: Visit Provider Family Medicine
DX: Z13.89 Encounter for screening for other disorder (principal)

== ENCOUNTER 2024-06-29 07:37 | Outpatient (REF) | payer OTHER, SELFPAY ==
--- NOTE | ~2024-06-29 | CT_ITS ---
CLINICAL HISTORY: R59.0 - Localized enlarged lymph nodes Exam: CT Abdomen and Pelvis With IV Contrast Comparison: None Findings: The liver density is homogeneous No biliary abnormalities The spleen is normal in size No pancreatic ductal dilatation No hydronephrosis. No urinary tract calculi or obstruction. Normal bowel caliber The appendix is normal. No free fluid/free air No vascular abnormalities. No retroperitoneal or mesenteric lymphadenopathy Bladder outline is smooth No suspicious skeletal lesions. Impression : Unremarkable CT of the abdomen and pelvis. Specifically no CT evidence of lymphadenopathy. This document has been electronically signed by: Jose M Cm MD on 06/29/2024 16:20:53
--- OUTSIDE RECORDS SUMMARY | 2024-06-29 07:39 | XMS_ITS | Clinical Summary ---
Author Organization [facility] Address [address] [place] [address] Care Team Providers Care Airplane Navigator Name Role Phone Unavailable Primary Care Provider [...]
[2024-06-29] MEDS: Barium Sulfate Oral (Berry) 450 ML ORAL.SUSP 900 ML PO (09:58)
[2024-06-29] MEDS: iohexoL 350 MG/ML 100 ML INFUS..BTL IV (10:00)
== END 2024-06-29 07:38 | disposition home or self-care (01) ==
LOC: HO.CT 07:37
PROVIDERS: PCP Family Medicine; Visit Provider Urology
DX: R59.0 Localized enlarged lymph nodes (principal)
CPT/HCPCS: 74177; Q9967

== ENCOUNTER → 2024-06-29 07:39 | Outpatient (BNV) | payer OTHER, SELFPAY | PROVIDERS: PCP Family Medicine; Visit Provider Radiology Diagnostic Radiology | DX: R59.0 Localized enlarged lymph nodes (principal) | CPT/HCPCS: 74177 ==

== ENCOUNTER 2024-07-03 14:40 | Outpatient (AMB) | payer OTHER, SELFPAY ==
--- NOTE | 2024-07-03 14:37 | MHC.PC.OV ---
Vital Signs 07/03/24 14:38 Height 6 ft 1 in Weight 180 lb BMI 23.7 BP 122/67 Respiration 14 Pulse 66 Pulse Source Pulse Oximeter Temp 97.7 F Temp Source Temporal Artery Scan Pulse Oximetry (%) 98 Oxygen Delivery Method Room Air Intake Visit Reasons: establish care, ? STD Forcer Maker Required: No Accompanied by: Self / Same As Patient Allergies No Known Allergies Allergy (Verified 07/06/24 11:11) Medication List - Last Reconciled 07/06/24 by Essence Vega PA-C doxycycline monohydrate 100 mg PO BID 10 days valacyclovir (Valtrex) 500 mg PO DAILY Tobacco use date assessed: 07/03/24 Dental Screening Dental Screen Date: 07/03/24 Did you have a dental visit in the last 12 months?: No Did you have a dental problem in the last 6 months where you did not have access to dental care?: No HPI establish care, ? STD HPI Details The patient is a 28-year-old male presenting to establish care following a recent HSV-2 diagnosis and concern over genital lesions/bumps. A month prior, after seeking STI testing due to concerns, he tested negative for syphilis and chlamydia but positive for HSV-2 via culture from a genital sore. His initial symptoms included tingling in the genital area, which soon developed into visible sores. He has since commenced antiviral treatment. The patient also reports persistent inguinal lymph node groin swelling since the previous year, unrelated to any known recent infections. Although primarily sexually active with one partner for three years, the patient reports prior multiple sexual contacts without consistent condom use. Current anxiety surrounds potential transmission of HSV-2 and possible the genital lumps he is experiencing, prompting further urologic evaluation, including a CT scan, and a referral for potential biopsy or surgical evaluation of warts. Social History - Family Status: Has been in a relationship with a female partner for approximately three years. - Substance Use: Denied during the conversation. - Functional Status: The patient is sexually active with the same partner for a proximally 3 years although has been having sexual intercourse unprotected with another female. [facility] Medical History (Updated 07/06/24 @ 18:20 by Essence Vega PA-C) Penile lump Hx of sinus bradycardia Family History Father No problems noted. Mother No problems noted. 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 1. Little interest or pleasure in doing things: not at all 2. Feeling down, depressed, or hopeless: not at all 3. Trouble falling or staying asleep, or sleeping too much: not at all 4. Feeling tired or having little energy: not at all 5. Poor appetite or overeating: not at all 6. Feeling bad about yourself - or that you are a failure or have let yourself or your family down: not at all 7. Trouble concentrating on things, such as reading the newspaper or watching television: not at all 8. Moving or speaking so slowly that other people could have noticed. Or the opposite - being so fidgety or restless that you have been moving around a lot more than usual: not at all 9. Thoughts that you would be better off or of hurting yourself in some way: not at all Total score: 0 Depression Screening Interpretation: Negative Depression Screening Done: Yes 60803 - PHQ-9 Billing: Yes Source: Developed by Drs. Presley Carter, Becky Escobedo, Rowdy Cantu and colleagues, with an educational dane from [employer]. Thrive Questionnaire Date Thrive assessed: 07/03/24 I am a: Patient What is your living situation today?: I have a steady place to live Within the past 12 months, did the food you bought not last and you didn't have the money to get more?: Never true Within the past 12 months, did you worry whether your food would run out before you got money to buy more?: Never true Do you have trouble paying for medicines?: No Do you have trouble getting transportation to medical appointments?: No Do you have trouble paying your heating and electricity bill?: No Do you have trouble taking care of your child, family member or friend?: No Do you have trouble with day-to-day activities such as bathing, preparing meals, shopping, managing finances, etc.?: No Are you currently unemployed and looking for a job?: No Are you interested in more education?: No Please select the resources that you would like help with: None THRIVE Score: 0 AUDIT C Alcohol Use Questionnaire (AUDIT-C) 1. How often do you have a drink containing alcohol?: Monthly or less 2. How many drinks containing alcohol do you have on a typical day when you are drinking?: 1 or 2 3. How often do you have six or more drinks on one occasion?: Never Total Score: 1 Score Reviewed/Action Taken: No SAVITA-7 AMB Questionnaire SAVITA-7 Date SAVITA - 7 assessed: 07/03/24 Feeling nervous, anxious, or on edge: 0 = Not at all Not being able to stop or control worryin = Not at all Worrying too much about different things: 0 = Not at all Trouble relaxin = Not at all Being so restless that it is hard to sit still: 0 = Not at all Becoming easily annoyed or irritable: 0 = Not at all Feeling afraid as if something awful might happen: 0 = Not at all Total SAVITA-7 score (0-4 normal; 5-9 mild; 10-14 moderate; 15-21 severe): 0 Source: Developed by Drs. Presley Carter, Becky Escobedo, Rowdy Cantu and colleagues, with an educational dane from [employer]. SAVITA-7 Assessment Billing SAVITA-7 Assessment Tool: SAIVTA-7 Assessment 17539 Review of Systems Const Details: - Genitourinary: Reports tingling, swelling in the groin, and lesions in the genital area. - Integumentary: Reports genital lumps. - Neurological: Denies other symptoms. - General: Reports anxiety and stress about the diagnosis. Physical exam (Primary Care) Vital Signs: Last Vital Signs Temp 97.7 F 07/03/24 14:38 Pulse 66 07/03/24 14:38 Resp 14 07/03/24 14:38 BP 122/67 07/03/24 14:38 Pulse Ox 98 07/03/24 14:38 Oxygen Delivery Method Room Air 07/03/24 14:38 Care Plan Goal for BP management: <130/90 at Goal BMI result Body Mass Index 23.7 normal bmi Tobacco/Smoking Status: Tobacco use Status Tobacco use date assessed 07/03/24 07/03/24 14:39 Patient Tobacco Use Status Never used Tobacco 07/03/24 14:45 PHQ-9: PHQ-9 Score PHQ-9: Total score 0 07/06/24 11:17 Depression Screening Interpretation: Negative Thrive Assessment: Date of Thrive Assessment Date Thrive assessed 07/03/24 07/03/24 14:39 Const Other: Appearance: Alert. Oriented X3. No acute distress. Head: Normal external exam. Normocephalic. Atraumatic. Eyes: Pupils are equal, round, and reactive to light. Extraocular movements intact. Conjunctiva and sclera normal. Eyelids normal. Ears: External auditory canal normal. Tympanic membranes normal. Throat: Pharynx normal. Uvula midline. Moist mucous membranes. Neck: Normal inspection. Neck supple. Full range of motion. No adenopathy. Thyroid Normal. No meningeal signs. No neck mass noted. Cardiovascular: Normal heart rate and rhythm. Heart sound normal. No murmurs noted. Pulses normal throughout. Respiratory: No respiratory distress. Painless inspiration. Breath sounds normal. No wheezes/rales/rhonchi noted. Chest nontender. No accessory muscle usage noted or decreased air movement noted. Abdomen: Soft and nontender. Bowel sounds normal in all 4 quadrants. No distention noted. No organomegaly noted. No visible injury noted. : Silk Blocker present. To the shaft of the penis patient has nontender macular papular lumps. No purulent drainage, induration, fluctuance, foul odor or signs of active infection at this time. No penile discharge noted. No inguinal lymphadenopathy noted at this time. Back: No costovertebral angle tenderness. Full range of motion noted. Skin: Skin warm and dry. Normal skin color. Normal skin turgor. No rashes/lesions/lacerations noted. Extremities: No lower extremity edema. Extremities exhibit normal range of motion. Extremities nontender. Neuro: Oriented X 3. No motor deficit. No sensory deficit. Reflexes normal. Results Reviewed Results Reviewed: - Labs: HSV culture positive for HSV-2; syphilis and chlamydia tests negative. - Tests and Diagnostics: CT scan of groin, was within normal limits no acute abnormalities were noted and follow-up evaluation with Urology pending. Coding Level of Care Code Est Pt Level 4 (92470) Complex EM visit Add On G2211 Diagnoses Pelvic lymphadenopathy R59.0 HSV-2 (herpes simplex virus 2) infection B00.9 Penile lump N48.89 Additional Codes SAVITA-7 Assessment Billing - SAVITA-7 Assessment Tool: SAVITA-7 Assessment 12505 ([id number]) PHQ-9 - 36456 - PHQ-9 Billing: Yes ([id number]) Time Spent (min) 60 Assessment & Plan Assessment & Plan (1) Pelvic lymphadenopathy: Code(s): R59.0 - Localized enlarged lymph nodes Category: Medical Plan: Patient had an outpatient CT scan which was negative for any acute processes. Patient has follow-up with Urology. Patient currently symptoms improving after antivirals. Condition is improved and stable will continue to monitor. (2) HSV-2 (herpes simplex virus 2) infection: Code(s): B00.9 - Herpesviral infection, unspecified Category: Medical Plan: The patient presents with HSV-2, diagnosed via culture from genital lesions. Initiation of daily antiviral therapy with valacyclovir at 500 mg is advised, increasing to 1,000 mg during outbreaks. This approach aims to reduce recurrence and transmission risk. The patient is guided on stress management to minimize HSV-2 flare-ups. The importance of addressing both symptomatic and asymptomatic viral shedding was highlighted. Condition is chronic and stable will continue to monitor. (3) Penile lump: Code(s): N48.89 - Other specified disorders of penis Category: Medical Plan: Evaluation by a urologist is necessary for lesions consistent with genital warts. Potential treatment options like biopsy, cryotherapy, or surgical removal will be explored. This follows from initial and ongoing assessments and addresses the likelihood of a secondary infection. Plan Plan Patient was informed and verbally consented to the use of an ambient scribe for clinic note documentation during this visit. 1. Genital Herpes Hsv-2 The patient presents with HSV-2, diagnosed via culture from genital lesions. Initiation of daily antiviral therapy with valacyclovir at 500 mg is advised, increasing to 1,000 mg during outbreaks. This approach aims to reduce recurrence and transmission risk. The patient is guided on stress management to minimize HSV-2 flare-ups. The importance of addressing both symptomatic and asymptomatic viral shedding was highlighted. 2. Genital lumps possible warts Evaluation by a urologist is necessary for lesions consistent with genital warts. Potential treatment options like biopsy, cryotherapy, or surgical removal will be explored. This follows from initial and ongoing assessments and addresses the likelihood of a secondary infection. 3. Enlarged Lymph Nodes Patient had an outpatient CT scan which was negative for any acute processes. Patient has follow-up with Urology. Patient currently symptoms improving after antivirals. Condition is improved and stable will continue to monitor. I discussed with the patient the diagnosis of genital herpes (HSV-2) and recommended a management plan consisting of a daily antiseptical antiviral medication, valacyclovir, to manage and reduce the risk of outbreaks. I explained the significance and implications of HSV-2, in particular, the risks associated with viral shedding even when lesions are absent. The benefits of stress management in reducing symptom frequency were conveyed. We also covered potential transmission risks to his partner, encouraging honest communication and preventive measures, including considering protective barriers. The possibility of genital warts warrants a urological consult. The variety of interventions, such as cryotherapy or surgical excision in confirmed cases, was reviewed to assure appropriate management. The patient is encouraged to attend follow-ups, particularly to review CT findings with the urologist. Routine follow-ups in a month post-urology review are suggested to evaluate treatment efficacy and patient comfort with the management regimen. The patient was advised on recognizing signs warranting urgent care regarding increased lesion prevalence or other systemic symptoms. Orders: Orders Magnesium 07/03/24. - Encounter for general adult medical examination without abnormal findings Vitamin B12 and Folate 07/03/24 - Encounter for general adult medical examination without abnormal findings Vitamin D 25-OH Total 07/03/24 - Encounter for general adult medical examination without abnormal findings TSH reflex Free T4 07/03/24 - Encounter for general adult medical examination without abnormal findings PSA,Total (Free>4and<10) 07/03/24 - Encounter for general adult medical examination without abnormal findings Hemoglobin A1c 07/03/24. - Encounter for general adult medical examination without abnormal findings Complete Blood Count Auto Diff 07/03/24 - Encounter for general adult medical examination without abnormal findings Comprehensive [place]. Panel Fast 07/03/24 - Encounter for general adult medical examination without abnormal findings Liver Panel 07/03/24 Z00.00 - Encounter for general adult medical examination without abnormal findings Lipid Panel 07/03/24 Z00.00 - Encounter for general adult medical examination without abnormal findings Medications: New valacyclovir (Valtrex) 500 mg PO DAILY 90 tabs 3RF doxycycline monohydrate 100 mg PO BID 20 tabs 0RF 10 days Patient Instructions: - Begin taking valacyclovir 500 mg once daily. If a herpes outbreak occurs, increase to 1,000 mg per day. - Schedule a urology follow-up appointment as soon as possible to evaluate the genital warts. - Monitor for changes in the size of lymph nodes or new symptoms and contact me if symptoms worsen. - Use protection during sexual activity to reduce the risk of spreading the infection. - Practice stress management techniques, such as meditation or exercise, to help control herpes outbreaks. - Return for a follow-up appointment in a month or sooner if new symptoms develop. - Make sure to fast before the upcoming blood tests. - Call me with any questions or concerns regarding medications or symptoms.
[2024-07-03 14:38] VITALS: BP 122/67; PULSE 66; RESP 14; TEMP 36.5; O2SAT 98; BMI 23.7
--- OUTSIDE RECORDS SUMMARY | 2024-07-03 14:44 | XMS_ITS | Clinical Summary ---
Author Organization [facility] Address [address] [place] [address] Care Team Providers Care Animal Physiology Teacher Name Role Phone Unavailable Primary Care Provider [...]
== END 2024-07-03 15:35 | disposition home or self-care (01) ==
LOC: HO.HMCSH 14:40
PROVIDERS: PCP Family Medicine; Visit Provider Physician Assistant Medical
DX: R59.0 Localized enlarged lymph nodes (principal); B00.9 Herpesviral infection, unspecified; N48.89 Other specified disorders of penis

== ENCOUNTER → 2024-07-03 14:40 | Outpatient (BNVA) | payer OTHER, SELFPAY | PROVIDERS: PCP Family Medicine; Visit Provider Physician Assistant Medical | DX: R59.0 Localized enlarged lymph nodes (principal); B00.9 Herpesviral infection, unspecified; N48.89 Other specified disorders of penis | CPT/HCPCS: 96127 ==

== ENCOUNTER 2024-08-07 09:43 | Outpatient (AMB) | payer OTHER, SELFPAY ==
--- NOTE | 2024-08-07 09:56 | MHC.OFFVIS ---
Intake Visit Reasons: 10w/CT/labs Intake Note: Patient is present for 10w/CT/LABS Urology Medication:NONE Antibiotic Allergy:NONE Blood Thinner:None Allergies Seasonal Allergies Allergy (Mild, Verified 09/12/24 14:02) Sneezing HPI Comments Details: 08/07/24-- History of Present Illness - The patient is a 28-year-old male presenting with swelling in the abdominal area and concerns about possible genital warts. - Previous abdominal swelling has improved but not fully resolved, with a CT scan showing no abnormalities. - Ingrown hair, folliculitis in the genital area were noted, also evaluated by a primary care physician. - No lesions suggestive of genital warts Results - CT scan of the abdomen and pelvis: No abnormalities, no lymphadenopathy detected Plan - Reassure the patient regarding the normal CT scan results and absence of lymphadenopathy. - Educate the patient on the nature of ingrown hairs and folliculitis, confirming they are not genital warts. - No further follow-up required unless new symptoms develop. 06/09/24--The patient is a 28-year-old male presenting with swelling in the groin area. Earlier in 2023, he experienced episodes of swelling in the inguinal region, which temporarily resolved but later reappeared. He consulted his primary care doctor and underwent STD testing, which returned negative. An urgent care visit in January included an ultrasound that revealed lymphadenopathy. The recent decrease in swelling has been noted, with no accompanying pain or other urinary complaints. The patient has expressed concern over the possible causes of the lymphadenopathy. Results - January ultrasound showing inguinal lymphadenopathy - Negative sexually transmitted disease tests Discussion Notes During the consultation, we discussed the patient's current state of inguinal lymphadenopathy. I recommended a CAT scan to reevaluate the lymph nodes for any changes, discussed possible need for a biopsy, should the lymph nodes remain prominent, emphasizing the potential for an inflammatory type response from the body initially. He denies familial cancer history. [facility] Medical History Hypothyroidism Hyperlipidemia LDL goal <100 Leukopenia Vitamin D deficiency Hyperlipidemia Low TSH level Folliculitis Ingrown hair Tinea Onychomycosis Penile lump Hx of sinus bradycardia Family History Father No problems noted. Mother No problems noted. 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 Cognitive needs: No Hearing needs: No Vision needs: Yes (rx contacts) Review of Systems Const All systems reviewed & are unremarkable except as noted in HPI and below Reports no additional complaints Eyes Reports no additional complaints ENT Reports no additional complaints Card Reports no additional complaints Resp Reports no additional complaints GI Reports no additional complaints Reports as per HPI Musc Reports no additional complaints Skin/Breast Reports system reviewed and no additional complaints, except as documented Neuro Reports no additional complaints Psych Reports no additional complaints Endo Reports no additional complaints Almas/Lymph Reports no additional complaints Aller/Immun Reports no additional complaints Assessment & Plan Assessment & Plan (1) Pelvic lymphadenopathy: Comment: resolved Code(s): R59.0 - Localized enlarged lymph nodes Category: Medical Plan FU prn Patient Instructions: The patient had an opportunity to ask questions regarding treatment plan. The patient expressed understanding and agreement with the above treatment plan. The patient is aware they should contact our office by phone for worsening of their current condition or the appearance of new symptoms. Compliance is encouraged with any medications and followup testing that is ordered. It is a privilege to be allowed the opportunity to participate in the urologic care of your patient. If you have any questions or concerns regarding treatment for the above conditions please do not hesitate to contact me. The office telephone contact is [phone]. This note is constructed in part using voice recognition software. While every effort has been made to ensure accuracy tester semiconductor packages errors may have been included. Yours sincerely, Huyen Alfaro MD Scribe Plan - Not visible on output: Patient was informed and verbally consented to the use of an ambient scribe for clinic note documentation during this visit. Coding Level of Care Code Est Pt Level 3 (78838) Diagnoses Pelvic lymphadenopathy R59.0
--- OUTSIDE RECORDS SUMMARY | 2024-08-07 10:38 | XMS_ITS | Clinical Summary ---
Author Organization [facility] Address [address] [place] [address] Care Team Providers Care Boxcar Weigher Name Role Phone Unavailable Primary Care Provider [...]
== END 2024-08-07 10:14 | disposition home or self-care (01) ==
LOC: HO.HUSH 09:43
PROVIDERS: PCP Internal Medicine; Visit Provider Urology
DX: R59.0 Localized enlarged lymph nodes (principal)
CPT/HCPCS: 99213

== ENCOUNTER 2024-08-14 14:46 | Outpatient (AMB) | payer OTHER, SELFPAY ==
--- NOTE | 2024-08-14 14:45 | A.OFFPC_ITS ---
Vital Signs 08/14/24 14:46 Height 6 ft 1 in Weight 181 lb BMI 23.9 BP 113/54 L Respiration 16 Pulse 62 Pulse Source Pulse Oximeter Temp 97.8 F Temp Source Temporal Artery Scan Pulse Oximetry (%) 99 Oxygen Delivery Method Room Air Intake Visit Reasons: 1 month follow up Haunted History Tour Guide Required: No Accompanied by: Self / Same As Patient Allergies No Known Allergies Allergy (Verified 08/14/24 15:00) Medication List - Last Reconciled 08/14/24 by Essence Vega PA-C valacyclovir (Valtrex) 500 mg PO DAILY Tobacco use date assessed: 08/14/24 Dental Screening Dental Screen Date: 07/03/24 HPI 1 month follow up HPI Details The patient is a 28-year-old male presenting with concerns about ingrown hair and folliculitis in the pubic area, onychomycosis, and herpes simplex virus infection. The patient reports persistent ingrown hair and folliculitis in the pubic area, initially evaluated by myself. The patient followed up with a urologist. Patient had a CT scan of the abdomen and pelvis was performed, which showed no abnormalities, and the condition does not require further intervention unless new symptoms arise. The patient has a history of onychomycosis, which is primarily affecting the toenails. The patient has been advised to use topical and oral antifungal medications, with a referral to podiatry for further management. 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 The patient is currently taking Valtrex as needed and has not experienced any recent outbreaks. [facility] Medical History (Updated 08/14/24 @ 15:21 by Essence Vega PA-C) Folliculitis Ingrown hair Tinea Onychomycosis Penile lump Hx of sinus bradycardia Family History Father No problems noted. Mother No problems noted. 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 1. Little interest or pleasure in doing things: not at all 2. Feeling down, depressed, or hopeless: not at all 3. Trouble falling or staying asleep, or sleeping too much: not at all 4. Feeling tired or having little energy: not at all 5. Poor appetite or overeating: not at all 6. Feeling bad about yourself - or that you are a failure or have let yourself or your family down: not at all 7. Trouble concentrating on things, such as reading the newspaper or watching television: not at all 8. Moving or speaking so slowly that other people could have noticed. Or the opposite - being so fidgety or restless that you have been moving around a lot more than usual: not at all 9. Thoughts that you would be better off or of hurting yourself in some way: not at all Total score: 0 Depression Screening Interpretation: Negative Depression Screening Done: Yes 94238 - PHQ-9 Billing: Yes Source: Developed by Drs. Presley Carter, Becky Escobedo, Rowdy Cantu and colleagues, with an educational dane from [employer]. Thrive Questionnaire Date Thrive assessed: 07/03/24 I am a: Patient What is your living situation today?: I have a steady place to live Within the past 12 months, did the food you bought not last and you didn't have the money to get more?: Never true Within the past 12 months, did you worry whether your food would run out before you got money to buy more?: Never true Do you have trouble paying for medicines?: No Do you have trouble getting transportation to medical appointments?: No Do you have trouble paying your heating and electricity bill?: No Do you have trouble taking care of your child, family member or friend?: No Do you have trouble with day-to-day activities such as bathing, preparing meals, shopping, managing finances, etc.?: No Are you currently unemployed and looking for a job?: No Are you interested in more education?: No Please select the resources that you would like help with: None THRIVE Score: 0 AUDIT C Alcohol Use Questionnaire (AUDIT-C) 1. How often do you have a drink containing alcohol?: Monthly or less 2. How many drinks containing alcohol do you have on a typical day when you are drinking?: 1 or 2 3. How often do you have six or more drinks on one occasion?: Never Total Score: 1 Score Reviewed/Action Taken: No SAVITA-7 AMB Questionnaire SAVITA-7 Date SAVITA - 7 assessed: 07/03/24 Feeling nervous, anxious, or on edge: 0 = Not at all Not being able to stop or control worryin = Not at all Worrying too much about different things: 0 = Not at all Trouble relaxin = Not at all Being so restless that it is hard to sit still: 0 = Not at all Becoming easily annoyed or irritable: 0 = Not at all Feeling afraid as if something awful might happen: 0 = Not at all Total SAVITA-7 score (0-4 normal; 5-9 mild; 10-14 moderate; 15-21 severe): 0 Source: Developed by Drs. Presley Carter, Becky Escobedo, Rowdy Cantu and colleagues, with an educational dane from [employer]. SAVITA-7 Assessment Billing SAVITA-7 Assessment Tool: SAVITA-7 Assessment 25893 Review of Systems Const Details: - Dermatological: Reports persistent ingrown hair and folliculitis in the pubic area. - Musculoskeletal: Reports onychomycosis affecting toenails. - Infectious Disease: Reports herpes simplex virus infection, currently asymptomatic. Physical exam (Primary Care) Vital Signs: Last Vital Signs Temp 97.8 F 08/14/24 14:46 Pulse 62 08/14/24 14:46 Resp 16 08/14/24 14:46 BP 113/54 L 08/14/24 14:46 Pulse Ox 99 08/14/24 14:46 Oxygen Delivery Method Room Air 08/14/24 14:46 Care Plan Goal for BP management: <140/90 at Goal BMI result Body Mass Index 23.9 normal bmi Tobacco/Smoking Status: Tobacco use Status Tobacco use date assessed 08/14/24 08/14/24 14:50 Patient Tobacco Use Status Never used Tobacco 08/14/24 14:50 PHQ-9: PHQ-9 Score PHQ-9: Total score 0 08/14/24 14:50 Depression Screening Interpretation: Negative Thrive Assessment: Date of Thrive Assessment Date Thrive assessed 07/03/24 08/14/24 14:50 Const Other: Appearance: Alert. Oriented X3. No acute distress. Head: Normal external exam. Normocephalic. Atraumatic. Eyes: Pupils are equal, round, and reactive to light. Extraocular movements intact. Conjunctiva and sclera normal. Eyelids normal. Throat: Pharynx normal. Uvula midline. Moist mucous membranes. Neck: Normal inspection. Neck supple. Full range of motion. Cardiovascular: Normal heart rate and rhythm. Respiratory: No respiratory distress. Painless inspiration. Back: Full range of motion noted. Skin: Skin warm and dry. Normal skin color. Normal skin turgor. Patient noted to have tinea between the toes and onychomycosis on the toenails. No additional rashes/lesions/lacerations noted. Extremities: Extremities exhibit normal range of motion. Neuro: Oriented X 3. No motor deficit. No sensory deficit. Reflexes normal. Results Reviewed Results Reviewed: - CT scan of the abdomen and pelvis: Normal, no abnormalities detected. - HSV testing: Positive for HSV-2, negative for other sexually transmitted infections. Coding Level of Care Code Est Pt Level 4 (91822) Complex EM visit Add On G2211 Diagnoses Ingrown hair L73.1 Folliculitis L73.9 Onychomycosis B35.1 HSV-2 (herpes simplex virus 2) infection B00.9 Additional Codes SAVITA-7 Assessment Billing - SAVITA-7 Assessment Tool: SAVITA-7 Assessment 38100 ([id number]) PHQ-9 - 94506 - PHQ-9 Billing: Yes ([id number]) Assessment & Plan Assessment & Plan (1) Ingrown hair: Code(s): L73.1 - Pseudofolliculitis barbae Category: Medical Plan: The patient has been advised that the ingrown hair and folliculitis do not require further intervention unless new symptoms arise. A CT scan was performed, showing no abnormalities, providing reassurance regarding the condition. Will prescribe Bactroban. Condition is chronic and stable will continue to monitor. (2) Folliculitis: Code(s): L73.9 - Follicular disorder, unspecified Category: Medical Plan: The patient has been advised that the ingrown hair and folliculitis do not require further intervention unless new symptoms arise. A CT scan was performed, showing no abnormalities, providing reassurance regarding the condition. Will prescribe Bactroban. Condition is chronic and stable will continue to monitor. (3) Onychomycosis: Code(s): B35.1 - Tinea unguium Category: Medical Plan: The patient is prescribed fluconazole and clotrimazole for the treatment of onychomycosis, with a referral to podiatry for further management. The patient is advised to monitor liver enzymes in four weeks due to potential medication side effects. Condition is chronic and stable continue to monitor. (4) HSV-2 (herpes simplex virus 2) infection: Code(s): B00.9 - Herpesviral infection, unspecified Category: Medical Plan: The patient is advised to continue taking Valtrex as needed to manage herpes simplex virus infection. The patient is informed that no further testing is necessary unless new symptoms develop. Condition is chronic and stable will continue to monitor. Plan Plan Patient was informed and verbally consented to the use of an ambient scribe for clinic note documentation during this visit. 1. Ingrown Hair And Folliculitis In The Pubic Area The patient has been advised that the ingrown hair and folliculitis do not require further intervention unless new symptoms arise. A CT scan was performed, showing no abnormalities, providing reassurance regarding the condition. 2. Onychomycosis The patient is prescribed fluconazole and clotrimazole for the treatment of onychomycosis, with a referral to podiatry for further management. The patient is advised to monitor liver enzymes in four weeks due to potential medication side effects. 3. Herpes Simplex Virus (Hsv) Infection The patient is advised to continue taking Valtrex as needed to manage herpes simplex virus infection. The patient is informed that no further testing is necessary unless new symptoms develop. I discussed with the patient that the ingrown hair and folliculitis do not require further intervention unless new symptoms arise, as confirmed by a normal CT scan. For onychomycosis, I prescribed fluconazole and clotrimazole and referred the patient to podiatry, advising monitoring of liver enzymes due to potential side effects. Regarding herpes simplex virus infection, I advised the patient to continue Valtrex as needed and reassured that no further testing is necessary unless new symptoms develop. Orders: Referrals Podiatry Referral B35.1 - Tinea unguium, B35.9 - Dermatophytosis, unspecified Medications: New mupirocin 2% 1 appl topical QID 22 grams 3RF fluconazole 300 mg (2 x 150 mg) PO QWEEK 8 tabs 0RF 4 weeks clotrimazole 1% 1 appl topical BID 56.7 grams 1RF 4 weeks Patient Instructions: - Continue taking Valtrex as needed for herpes simplex virus infection. - Monitor for new symptoms related to ingrown hair and folliculitis, and seek care if they arise. - Take prescribed fluconazole and clotrimazole for onychomycosis and follow up with podiatry. - Recheck liver enzymes in four weeks due to medication use.
[2024-08-14 14:46] VITALS: BP 113/54; PULSE 62; RESP 16; TEMP 36.6; O2SAT 99; BMI 23.9
--- OUTSIDE RECORDS SUMMARY | 2024-08-14 16:19 | XMS_ITS | Clinical Summary ---
Author Organization [facility] Address [address] [place] [address] Care Team Providers Care Die Cutter Apprentice Name Role Phone Unavailable Primary Care Provider [...]
== END 2024-08-14 15:15 | disposition home or self-care (01) ==
LOC: HO.HMCSH 14:46
PROVIDERS: PCP Internal Medicine; Visit Provider Physician Assistant Medical
DX: L73.1 Pseudofolliculitis barbae (principal); L73.9 Follicular disorder, unspecified; B35.1 Tinea unguium; B00.9 Herpesviral infection, unspecified

== ENCOUNTER → 2024-08-14 14:46 | Outpatient (BNVA) | payer OTHER, SELFPAY | PROVIDERS: PCP Internal Medicine; Visit Provider Physician Assistant Medical | DX: L73.1 Pseudofolliculitis barbae (principal); B00.9 Herpesviral infection, unspecified; B35.1 Tinea unguium; L73.9 Follicular disorder, unspecified | CPT/HCPCS: 96127 ==

== ENCOUNTER 2024-09-02 13:11 | Outpatient (REF) | payer OTHER, SELFPAY ==
[2024-09-02 15:29] LABS: MANUAL DIFF FLAG NO
[2024-09-02 15:31] LABS: Hematocrit 47.7 % (42.0-52.0); Hemoglobin 16.4 g/dl (14.0-18.0); Imm Gran Abs Auto 0.00 X10*3/uL (0.00-0.03); Imm Gran Pct Auto 0.0 % (0.0-0.4); Lymphocytes Absolute Auto 0.9 X10*3/uL (1.2-4.9); Mean Corpuscular HGB Conc 34.4 g/dl (31.0-36.0); Mean Corpuscular Hemoglobin 30.0 pg (27.0-33.0); Mean Corpuscular Volume 87.4 fL (80.0-98.0); NRBC Abs Auto 0.000 X10*3/uL (0.0-0.012); NRBC Pct Auto 0.0 /100WBC (0.0-0.2); Platelet Count 170 X10*3/uL (160-400); Red Blood Count 5.46 X10*6/uL (4.60-5.80); White Blood Count 3.7 X10*3/uL (4.8-10.8)
[2024-09-02 15:41] LABS: Hemoglobin A1C 125.1184 umol/L; Total Hemoglobin (HGBA1C) 4121.3043 umol/L
[2024-09-02 15:50] LABS: Albumin Level 4.6 g/dL (3.5-5.0); Alkaline Phosphatase 52 U/L (39-117); Anion Gap 10 (12-20); Aspartate Amino Transferase 35 U/L (5-37); Blood Urea Nitrogen 11 mg/dL (9-16); Calcium 9.3 mg/dL (8.4-10.2); Carbon Dioxide 28 mmol/L (22-29); Chloride 106 mmol/L (96-108); Cholesterol 179 mg/dL (<200); Estimated Glomerular Filt Rate > 60; HDL Cholesterol 62 mg/dL (>40); Magnesium 1.9 mg/dL (1.6-2.6); Potassium 3.8 mmol/L (3.3-5.1); Sodium 140 mmol/L (135-145); Total Protein 7.0 g/dL (6.5-8.0); Triglycerides 76 mg/dL (<150)
[2024-09-02 16:05] LABS: PSA,Total (Free>4and<10) 0.72 ng/mL (0.00-4.00)
[2024-09-02 16:07] LABS: Alanine Aminotransferase 32 U/L (0-40)
[2024-09-02 16:18] LABS: Folate 10.0 ng/mL (> or = 4.0); Vitamin B12 344 pg/mL (200-900)
[2024-09-02 16:59] LABS: Free T4 (Free Thyroxine) 0.94 ng/dL (0.71-1.85)
== END 2024-09-02 13:12 | disposition home or self-care (01) ==
LOC: HO.HMGCLDS 13:11
PROVIDERS: PCP Physician Assistant Medical; Visit Provider Physician Assistant Medical
DX: Z00.00 Encounter for general adult medical examination without abnormal findings (principal)
CPT/HCPCS: 36415; 80053; 80061; 80076; 82248; 82306; 82607; 82746; 83036; 83735; 84153; 84439; 84443; 85025

== ENCOUNTER 2024-09-12 13:38 | Outpatient (AMB) | payer OTHER, SELFPAY ==
--- NOTE | 2024-09-12 13:34 | MHC.PC.OV ---
Intake Visit Reasons: 1 month follow up Chief Radiologic Technologist Required: No Accompanied by: Self / Same As Patient Allergies Seasonal Allergies Allergy (Mild, Verified 09/12/24 14:02) Sneezing Medication List - Last Reconciled 09/12/24 by Essence Vega PA-C valacyclovir (Valtrex) 500 mg PO DAILY Tobacco use date assessed: 08/14/24 Dental Screening Dental Screen Date: 07/03/24 Did you have a dental visit in the last 12 months?: Yes Did you have a dental problem in the last 6 months where you did not have access to dental care?: No Was dental information given to patient?: Patient has dentist HPI 1 month follow up HPI Details The patient is a 28-year-old male presenting with concerns regarding lab results and medication management. The patient has a history of low white blood cell count, which was noted to be 3.7 thousand on the recent lab work conducted on September 02. The liver enzymes were normal, but the cholesterol level was slightly elevated with an LDL of 102 mg/dL. The patient also has a low vitamin D level and a low thyroid level, with the thyroid-stimulating hormone (TSH) recorded at 0.27, slightly below the normal range of 0.32. The patient has not started the prescribed medication, fluconazole for onychomycosis, due to concerns about liver function and the need for blood work prior to initiation. The patient plans to start the medication now that the blood work has been completed and results are satisfactory. [facility] Medical History Hypothyroidism Hyperlipidemia LDL goal <100 Leukopenia Vitamin D deficiency Hyperlipidemia Low TSH level Folliculitis Ingrown hair Tinea Onychomycosis Penile lump Hx of sinus bradycardia Family History Father No problems noted. Mother No problems noted. 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 1. Little interest or pleasure in doing things: not at all 2. Feeling down, depressed, or hopeless: not at all 3. Trouble falling or staying asleep, or sleeping too much: not at all 4. Feeling tired or having little energy: not at all 5. Poor appetite or overeating: not at all 6. Feeling bad about yourself - or that you are a failure or have let yourself or your family down: not at all 7. Trouble concentrating on things, such as reading the newspaper or watching television: not at all 8. Moving or speaking so slowly that other people could have noticed. Or the opposite - being so fidgety or restless that you have been moving around a lot more than usual: not at all 9. Thoughts that you would be better off or of hurting yourself in some way: not at all Total score: 0 Depression Screening Interpretation: Negative Depression Screening Done: Yes 16521 - PHQ-9 Billing: Yes Source: Developed by Drs. Presley Carter, Becky Escobedo, Rowdy Cantu and colleagues, with an educational dane from [employer]. Thrive Questionnaire Date Thrive assessed: 07/03/24 I am a: Patient What is your living situation today?: I have a steady place to live Within the past 12 months, did the food you bought not last and you didn't have the money to get more?: Never true Within the past 12 months, did you worry whether your food would run out before you got money to buy more?: Never true Do you have trouble paying for medicines?: No Do you have trouble getting transportation to medical appointments?: No Do you have trouble paying your heating and electricity bill?: No Do you have trouble taking care of your child, family member or friend?: No Do you have trouble with day-to-day activities such as bathing, preparing meals, shopping, managing finances, etc.?: No Are you currently unemployed and looking for a job?: No Are you interested in more education?: No Please select the resources that you would like help with: None THRIVE Score: 0 AUDIT C Alcohol Use Questionnaire (AUDIT-C) 1. How often do you have a drink containing alcohol?: Monthly or less 2. How many drinks containing alcohol do you have on a typical day when you are drinking?: 1 or 2 3. How often do you have six or more drinks on one occasion?: Never Total Score: 1 Score Reviewed/Action Taken: No SAVITA-7 AMB Questionnaire SAVITA-7 Date SAVITA - 7 assessed: 07/03/24 Feeling nervous, anxious, or on edge: 0 = Not at all Not being able to stop or control worryin = Not at all Worrying too much about different things: 0 = Not at all Trouble relaxin = Not at all Being so restless that it is hard to sit still: 0 = Not at all Becoming easily annoyed or irritable: 0 = Not at all Feeling afraid as if something awful might happen: 0 = Not at all Total SAVITA-7 score (0-4 normal; 5-9 mild; 10-14 moderate; 15-21 severe): 0 Source: Developed by Drs. Presley Carter, Becky Escobedo, Rowdy Cantu and colleagues, with an educational dane from [employer]. SAVITA-7 Assessment Billing SAVITA-7 Assessment Tool: SAVITA-7 Assessment 62833 Review of Systems Const All systems reviewed & are unremarkable except as noted in HPI and below Physical exam (Primary Care) Tobacco/Smoking Status: Tobacco use Status Tobacco use date assessed 08/14/24 09/12/24 13:40 Patient Tobacco Use Status Never used Tobacco 09/12/24 13:40 PHQ-9: PHQ-9 Score PHQ-9: Total score 0 09/12/24 13:46 Depression Screening Interpretation: Negative Thrive Assessment: Date of Thrive Assessment Date Thrive assessed 07/03/24 09/12/24 13:40 Telehealth Telehealth Telehealth Platform: [facility] Location of provider rendering services: practice address Location of patient: address on file Patient Identification confirmed using: Name, : Yes Telehealth method: voice only Patient verbally consented to treatment: Yes Patient verbally consented to billing insurance company: Yes Patient informed of any privacy concerns related to visit: Yes Minutes spent on Phone/Video with Pt.: 20 Results Reviewed Results Reviewed: - Labs: White blood cell count at 3.7 thousand, LDL cholesterol at 102 mg/dL, normal liver enzymes, vitamin D level low, TSH at 0.27. Coding Level of Care Code Tele Est Pt Level 4 (68735) Complex EM visit Add On G2211 Diagnoses Leukopenia D72.819 Hyperlipidemia LDL goal <100 E78.5 Vitamin D deficiency E55.9 Low TSH level R79.89 Onychomycosis B35.1 Tinea B35.9 Additional Codes SAVITA-7 Assessment Billing - SAVITA-7 Assessment Tool: SAVITA-7 Assessment 59569 ([id number]) PHQ-9 - 79616 - PHQ-9 Billing: Yes ([id number]) Assessment & Plan Assessment & Plan (1) Leukopenia: Code(s): D72.819 - Decreased white blood cell count, unspecified Category: Medical Plan: The patient's white blood cell count is low at 3.7 thousand, and it will be monitored over time to assess any changes or need for intervention. (2) Hyperlipidemia LDL goal <100: Code(s): E78.5 - Hyperlipidemia, unspecified Category: Medical Plan: The patient's LDL cholesterol is slightly elevated at 102 mg/dL, and dietary modifications are recommended to improve this level. (3) Vitamin D deficiency: Code(s): E55.9 - Vitamin D deficiency, unspecified Category: Medical Plan: The patient has a low vitamin D level, and supplementation may be considered to address this deficiency. (4) Low TSH level: Code(s): R79.89 - Other specified abnormal findings of blood chemistry Category: Medical Plan: The patient's TSH is slightly below the normal range at 0.27, and a repeat thyroid function test is planned after four weeks of fluconazole treatment to reassess thyroid status. (5) Onychomycosis: Code(s): B35.1 - Tinea unguium Category: Medical Plan: Patient instructed to have repeat liver enzymes after he finishes the course of the fluconazole for onychomycosis. Patient normal liver enzymes on the 12th of this month. Condition is chronic and stable continue to monitor. (6) Tinea: Code(s): B35.9 - Dermatophytosis, unspecified Category: Medical Plan: Will call patient's pharmacy to find out if there are any alternatives that patient will not have to pay a high co-pay for the prescription. Plan Plan Patient was informed and verbally consented to the use of an ambient scribe for clinic note documentation during this visit. 1. Low White Blood Cell Count The patient's white blood cell count is low at 3.7 thousand, and it will be monitored over time to assess any changes or need for intervention. 2. Hypercholesterolemia The patient's LDL cholesterol is slightly elevated at 102 mg/dL, and dietary modifications are recommended to improve this level. 3. Vitamin D Deficiency The patient has a low vitamin D level, and supplementation may be considered to address this deficiency. 4. Hypothyroidism The patient's TSH is slightly below the normal range at 0.27, and a repeat thyroid function test is planned after four weeks of fluconazole treatment to reassess thyroid status. I discussed with the patient the importance of monitoring his white blood cell count and the need for dietary changes to manage his cholesterol levels. We also talked about the low vitamin D and thyroid levels, and I recommended a repeat thyroid function test after four weeks of fluconazole treatment. Orders: Orders TSH reflex Free T4 Today Z00.00 - Encounter for general adult medical examination without abnormal findings Liver Panel Today Z00.00 - Encounter for general adult medical examination without abnormal findings Patient Instructions: - Start taking fluconazole as prescribed. - Follow a diet low in cholesterol, avoiding eggs and fried foods. - Repeat thyroid function test and liver enzymes in four weeks. - Contact the pharmacy to check for alternative medications if insurance does not cover the prescribed cream.
--- OUTSIDE RECORDS SUMMARY | 2024-09-12 14:47 | XMS_ITS | Clinical Summary ---
Author Organization [facility] Address [address] [place] [address] Care Team Providers Care Gaming Director Name Role Phone Unavailable Primary Care Provider [...] Vaccine ( - 2023-2 5 season) 2023 Depression Screening 02/23/2024 Influenza Vaccine (#1) 2024 HIB Vaccines Aged Out No longer [...] 5 Years) and At-Risk Patients (6 to 49 Years) Aged Out No longer eligible b ased on patient's age to complete this topic RSV Immunization Patients Un isi 20 months Aged Out No longer eligible b ased on patient's age to complete this topic Varicella Vaccines Aged Out No longer eligible based on patient's age to complete this topic
== END 2024-09-12 14:04 | disposition home or self-care (01) ==
LOC: HO.HMCSH 13:38
PROVIDERS: PCP Physician Assistant Medical; Visit Provider Physician Assistant Medical
DX: D72.819 Decreased white blood cell count, unspecified (principal); E78.5 Hyperlipidemia, unspecified; E55.9 Vitamin D deficiency, unspecified; R79.89 Other specified abnormal findings of blood chemistry; B35.1 Tinea unguium; B35.9 Dermatophytosis, unspecified

== ENCOUNTER → 2024-09-12 13:38 | Outpatient (BNVA) | payer OTHER, SELFPAY | PROVIDERS: PCP Physician Assistant Medical; Visit Provider Physician Assistant Medical | DX: B35.1 Tinea unguium (principal); E55.9 Vitamin D deficiency, unspecified; D72.819 Decreased white blood cell count, unspecified; E78.5 Hyperlipidemia, unspecified; R79.89 Other specified abnormal findings of blood chemistry; B35.9 Dermatophytosis, unspecified; E78.00 Pure hypercholesterolemia, unspecified; E03.9 Hypothyroidism, unspecified | CPT/HCPCS: 96127 ==

== ENCOUNTER 2025-01-26 14:07 | Outpatient (AMB) | payer OTHER, SELFPAY ==
[2025-01-26 14:12] VITALS: BP 112/51; PULSE 80; RESP 14; TEMP 36.4; O2SAT 99; BMI 24.0
--- NOTE | 2025-01-26 14:12 | A.OFFPC_ITS ---
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 He reports developing swollen lymph nodes in the groin and a boil in his pubic area over the past weekend, noting that the swelling has since decreased. The patient has a known history of HSV-2, with previous testing being negative for HSV-1. He has had recent recurrent outbreaks that do not cause pain. His outbreaks typically occur near the tip of the penis, but a recent one was located lower down. He has a prescription for valacyclovir 500 mg, which he takes intermittently when he feels prodromal symptoms or when he remembers, rather than on a daily basis. Social History - Sexual History: The patient is in a mo nogamous relationship and reports that his girlfriend has not tested positive for any sexually transmitted infections. - He reports using condoms most of the t beulah but has had instances of unprotected intercourse. [facility]LY [facility] Medical History Lymphangitis of groin Hypothyroidism Hyperlipidemia LDL goal <100 Leukopenia Vitamin D deficiency Hyperlipidemia Low TSH level Folliculitis Ingrown hair Tinea Onychomycosis Penile lump Hx of sinus bradycardia Family History Father No problems noted. Mother No problems noted. 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 1. Little interest or pleasure in doing things: not at all 2. Feeling down, depressed, or hopeless: not at all 3. Trouble falling or staying asleep, or sleeping too much: not at all 4. Feeling tired or having little energy: not at all 5. Poor appetite or overeating: not at all 6. Feeling bad about yourself - or that you are a failure or have let yourself or your family down: not at all 7. Trouble concentrating on things, such as reading the newspaper or watching television: not at all 8. Moving or speaking so slowly that other people could have noticed. Or the opposite - being so fidgety or restless that you have been moving around a lot more than usual: not at all 9. Thoughts that you would be better off or of hurting yourself in some way: not at all Total score: 0 Depression Screening Interpretation: Negative Depression Screening Done: Yes 56834 - PHQ-9 Billing: Yes Source: Developed by Drs. Presley Carter, Becky Escobedo, Rowdy Cantu and colleagues, with an educational dane from [employer]. Thrive Questionnaire Date Thrive assessed: 07/03/24 I am a: Patient What is your living situation today?: I have a steady place to live Within the past 12 months, did the food you bought not last and you didn't have the money to get more?: Never true Within the past 12 months, did you worry whether your food would run out before you got money to buy more?: Never true Do you have trouble paying for medicines?: No Do you have trouble getting transportation to medical appointments?: No Do you have trouble paying your heating and electricity bill?: No Do you have trouble taking care of your child, family member or friend?: No Do you have trouble with day-to-day activities such as bathing, preparing meals, shopping, managing finances, etc.?: No Are you currently unemployed and looking for a job?: No Are you interested in more education?: No Please select the resources that you would like help with: None THRIVE Score: 0 AUDIT C Alcohol Use Questionnaire (AUDIT-C) 1. How often do you have a drink containing alcohol?: Monthly or less 2. How many drinks containing alcohol do you have on a typical day when you are drinking?: 1 or 2 3. How often do you have six or more drinks on one occasion?: Never Total Score: 1 Score Reviewed/Action Taken: No SAVITA-7 AMB Questionnaire SAVITA-7 Date SAVITA - 7 assessed: 07/03/24 Feeling nervous, anxious, or on edge: 0 = Not at all Not being able to stop or control worryin = Not at all Worrying too much about different things: 0 = Not at all Trouble relaxin = Not at all Being so restless that it is hard to sit still: 0 = Not at all Becoming easily annoyed or irritable: 0 = Not at all Feeling afraid as if something awful might happen: 0 = Not at all Total SAVITA-7 score (0-4 normal; 5-9 mild; 10-14 moderate; 15-21 severe): 0 Source: Developed by Drs. Presley Carter, Becky Escobedo, Rowdy Cantu and colleagues, with an educational dane from [employer]. SAVITA-7 Assessment Billing SAVITA-7 Assessment Tool: SAVITA-7 Assessment 39348 Review of Systems Narrative Review of Systems - Constitutional: Reports feeling generally well. - Genitourinary: Reports groin pain and a recent lesion outbreak on his penis. - Integumentary: Reports a boil in the pubic area. - Lymphatic: Reports swollen lymph nodes in the groin, which have since improved . Const All systems reviewed & are unremarkable except as noted in HPI and below Physical exam (Primary Care) Vital Signs: Last Vital Signs Temp 97.6 F 01/26/25 14:12 Pulse 80 01/26/25 14:12 Resp 14 01/26/25 14:12 BP 112/51 L 01/26/25 14:12 Pulse Ox 99 01/26/25 14:12 Oxygen Delivery Method Room Air 01/26/25 14:12 Care Plan Goal for BP management: <140/90 at Goal BMI result Body Mass Index 24.0 Normal BMI Tobacco/Smoking Status: Tobacco use Status Tobacco use date assessed 08/14/24 01/26/25 14:19 Patient Tobacco Use Status Never used Tobacco 01/26/25 14:19 PHQ-9: PHQ-9 Score PHQ-9: Total score 0 01/26/25 14:19 Depression Screening Interpretation: Negative Thrive Assessment: Date of Thrive Assessment Date Thrive assessed 07/03/24 01/26/25 14:19 Narrative Physical Exam Appearance: Alert. Oriented X3. No acute distress. Head: Normal external exam. Normocephalic. Atraumatic. Eyes: Pupils are equal, round, and reactive to light. Extraocular movements intact. Conjunctiva and sclera normal. Eyelids normal. Throat: Pharynx normal. Uvula midline. Moist mucous membranes. Neck: Normal inspection. Neck supple. Full range of motion. Cardiovascular: Normal heart rate and rhythm. Respiratory: No respiratory distress. Painless inspiration. Back: Full range of motion noted. Skin: Skin warm and dry. Normal skin color. Normal skin turgor. Presence of boils and ingrown hairs noted in the pubic area and buttocks. No additional rashes/lesions/lacerations noted. Extremities: Extremities exhibit normal range of motion. Neuro: Oriented X 3. No motor deficit. No sensory deficit. Reflexes normal. Results Reviewed Results Reviewed: - Labs: Prior testing was positive for HSV-2 and negative for HSV-1. Coding Level of Care Code Est Pt Level 4 (85697) Complex visit Add On G2211 Diagnoses Folliculitis L73.9 HSV-2 (herpes simplex virus 2) infection B00.9 Possible exposure to STD Z20.2 Additional Codes SAVITA-7 Assessment Billing - SAVITA-7 Assessment Tool: SAVITA-7 Assessment 47904 ([id number]) PHQ-9 - 65898 - PHQ-9 Billing: Yes ([id number]) Assessment & Plan Assessment & Plan (1) Folliculitis: Code(s): L73.9 - Follicular disorder, unspecified Category: Medical Plan: The lesions in the pubic area appear to be folliculitis secondary to shaving. The patient has been using warm compresses, which have helped. A topical antibiotic and two oral antibiotics will be prescribed to treat for a skin infection and cover broadly. (2) HSV-2 (herpes simplex virus 2) infection: Code(s): B00.9 - Herpesviral infection, unspecified Category: Medical Plan: The patient has a history of HSV-2 with recurrent outbreaks and is not on consistent daily suppressive therapy. A healing lesion consistent with an HSV outbreak was noted on exam. He was advised to start taking his valacyclovir medication daily for suppression. A blood test for HSV-1 will be ordered. (3) Possible exposure to STD: Code(s): Z20.2 - Contact with and (suspected) exposure to infections with a predominantly sexual mode of transmission Category: Medical Plan: Given the patient's symptoms and sexual activity, comprehensive STI screening is warranted. A urine test for gonorrhea and chlamydia will be collected in the office today. He was instructed to provide the urine sample before starting the prescribed antibiotics, as they can treat chlamydia. Blood tests for syphilis and HIV will also be ordered. The patient will be contacted with any positive results. Plan Plan Patient was informed and verbally consented to the use of an ambient scribe for clinic note documentation during this visit. 1. Folliculitis Of Groin The lesions in the pubic area appear to be folliculitis secondary to shaving. The patient has been using warm compresses, which have helped. A topical antibiotic and two oral antibiotics will be prescribed to treat for a skin infection and cover broadly. 2. Genital Herpes Simplex Virus 2 Infection The patient has a history of HSV-2 with recurrent outbreaks and is not on consistent daily suppressive therapy. A healing lesion consistent with an HSV outbreak was noted on exam. He was advised to start taking his valacyclovir medication daily for suppression. A blood test for HSV-1 will be ordered. 3. Screening For Sexually Transmitted Infections Given the patient's symptoms and sexual activity, comprehensive STI screening is warranted. A urine test for gonorrhea and chlamydia will be collected in the office today. He was instructed to provide the urine sample before starting the prescribed antibiotics, as they can treat chlamydia. Blood tests for syphilis and HIV will also be ordered. The patient will be contacted with any positive results. Discussion Notes I discussed with the patient that his symptoms appear to be from two separate issues: folliculitis from shaving and a recurrent genital herpes outbreak. I explained that I would prescribe oral and topical antibiotics for the folliculitis and advised him to continue with warm compresses. I recommended he take his valacyclovir medication daily to suppress HSV outbreaks rather than only treating active episodes. We discussed the plan for comprehensive STI screening, including urine tests for gonorrhea and chlamydia, and blood tests for syphilis, HIV, and HSV-1. I instructed him to provide the urine sample before starting the antibiotics because the prescribed medication is a broad- spectrum antibiotic that could also treat potential STIs like chlamydia and gonorrhea, which would affect test results. I reassured him that HSV is a very common condition. I informed him that I will call him right away if any of the test results come back positive. Orders: Orders Herpes Simplex Virus Ab IgG Today B00.9 - Herpesviral infection, unspecified, I89.1 - Lymphangitis, Z20.2 - Contact with and (suspected) exposure to infections with a predominantly sexual mode of transmission HIV Ab/Ag Today Z20.2 - Contact with and (suspected) exposure to infections with a predominantly sexual mode of transmission RPR Monitor reflex titer Today B00.9 - Herpesviral infection, unspecified, I89.1 - Lymphangitis, Z20.2 - Contact with and (suspected) exposure to infections with a predominantly sexual mode of transmission CT NG by PCR Urine Today B00.9 - Herpesviral infection, unspecified, I89.1 - Lymphangitis, Z20.2 - Contact with and (suspected) exposure to infections with a predominantly sexual mode of transmission Medications: New cephalexin 500 mg PO Q6H 40 caps 0RF 10 days mupirocin 2% 1 appl topical TID 22 grams 3RF doxycycline monohydrate 100 mg PO BID 20 tabs 0RF 10 days Patient Instructions: Patient Instructions - Apply warm compresses to the tender spots in your groin area. - Take the prescribed oral and topical antibiotics to treat the skin infection. - You should start taking your herpes medication every day to prevent future outbreaks. - Please provide a urine sample today in the office before you start taking the antibiotics. - You will need to go to a lab for blood tests to check for HIV, syphilis, and HSV-1. - We will call you immediately if any of your test results are positive.
--- OUTSIDE RECORDS SUMMARY | 2025-01-26 18:19 | XMS_ITS | Clinical Summary ---
Author Organization [facility] Address [address] [place] [address] Care Team Providers Care Special Duty Nurse Name Role Phone Unavailable Primary Care Provider [...] of 3 - 19+ 3-dose series) 12/28/2015 HPV Vaccines (1 - 3-dose SCD M series) 12/28/2023 Depression Screening 02/23/2024 COVID-19 Vaccine (1 - 2024-2 6 season) 2024 Influenza Vaccine (#1) 2024 RSV Immunization Adult Patie nts (1 - 1-dose 75+ series) 12/28/2071 HIB Vaccines Aged Out No longer eligi [...]
== END 2025-01-26 14:40 | disposition home or self-care (01) ==
LOC: HO.HMCSH 14:07
PROVIDERS: PCP Physician Assistant Medical; Visit Provider Physician Assistant Medical
DX: L73.9 Follicular disorder, unspecified (principal); B00.9 Herpesviral infection, unspecified; Z20.2 Contact with and (suspected) exposure to infections with a predominantly sexual mode of transmission

== ENCOUNTER 2025-01-26 14:07 | Outpatient (REF) | payer OTHER, SELFPAY ==
[2025-01-27 01:45] LABS: CT PCR Urine NOT DETECTED (Not Detect.); NG PCR Urine NOT DETECTED (Not Detect.)
== END 2025-01-26 14:08 | disposition home or self-care (01) ==
LOC: HO.LAB 14:07
PROVIDERS: PCP Physician Assistant Medical; Visit Provider Physician Assistant Medical
DX: I89.1 Lymphangitis (principal); B00.9 Herpesviral infection, unspecified; Z20.2 Contact with and (suspected) exposure to infections with a predominantly sexual mode of transmission; Z13.31 Encounter for screening for depression
CPT/HCPCS: 87491; 87591; 96127

== ENCOUNTER 2025-02-08 14:56 | Outpatient (REF) | payer OTHER, SELFPAY ==
[2025-02-08 16:49] LABS: Alanine Aminotransferase 48 U/L (0-40); Albumin Level 4.9 g/dL (3.5-5.0); Alkaline Phosphatase 54 U/L (39-117); Aspartate Amino Transferase 33 U/L (5-37); Total Protein 7.3 g/dL (6.5-8.0)
--- OUTSIDE RECORDS SUMMARY | 2025-02-08 19:03 | XMS_ITS | Clinical Summary ---
Author Organization [facility] Address [address] [place] [address] Care Team Providers Care Mussel Farmer Name Role Phone Unavailable Primary Care Provider [...]
[2025-02-09 07:59] LABS: HIV Num 1 0.06 S/CO (0.00-0.99)
== END 2025-02-08 14:57 | disposition home or self-care (01) ==
LOC: HO.HMGCLDS 14:56
PROVIDERS: PCP Physician Assistant Medical; Visit Provider Physician Assistant Medical
DX: Z00.00 Encounter for general adult medical examination without abnormal findings (principal); Z11.4 Encounter for screening for human immunodeficiency virus [HIV]; Z13.29 Encounter for screening for other suspected endocrine disorder; B00.9 Herpesviral infection, unspecified; I89.1 Lymphangitis; Z20.2 Contact with and (suspected) exposure to infections with a predominantly sexual mode of transmission
CPT/HCPCS: 36415; 80076; 84443; 86592; 86695; 86696; 87389